=== PATIENT | female | born 1985 | race American Indian/Alaskan Native ===

== ENCOUNTER 2016-03-20 14:54 | Emergency (ER) | payer OTHER ==
[~2016-03-20] VITALS: Ht 162.6 cm; Wt 98.8 kg
[~2016-03-20 14:54] MED LIST: HYDR-5688 PO; LEVO50TA6 PO
[2016-03-20 15:03] VITALS: TEMP 37.1; Ht 162.6 cm; Wt 98.8 kg
--- NOTE | 2016-03-20 15:49 | DIAGNOSTIC IMAGING REPORT ---
CHEST 2 VIEWS ROUTINE CLINICAL HISTORY: cough COMPARISON STUDY: 04/04/2012 FINDINGS: The cardiac and mediastinal contours are normal. There is no evidence of focal pulmonary consolidation. There is no evidence of failure. No pleural effusions are visualized.[ IMPRESSION: No active disease in the chest. Electronically signed by: Rush Berkowitz M.D. 03/20/2016 3:47 PM Dictated Date/Time: 03/20/2016 3:47 PM
[2016-03-20] MEDS ORDERED: HYDR5SYP11 PO (16:47)
[2016-03-20 16:53] VITALS: BP 111/61; PULSE 98; O2SAT 97
--- NOTE | 2016-03-20 17:09 | EMERGENCY ROOM VISIT NOTE ---
History Report prepared by Irma: [place] Br[place]ño Under the Supervision of: Dr. Navarro Cintron D.O. First contact with patient: 15:06 Chief Complaint: COUGH Stated Complaint: CHEST PAIN History of Present Illness The patient is a 30 year old female who presents to the Emergency Room with complaints of persistent cough that started 3 days ago. The patient presented to her PCP 2 days ago who prescribed Tessalon pearls. The patient notes that the medication has not helped relieve her symptoms. She notes that the cough is productive with green phlegm. She complains of subjective fevers over the weekend, runny nose, congestion, and pain with the cough especially in her lower back and chest. The discomfort is worsened with coughing. She notes that the low back discomfort started yesterday. Pt denies headache, ear pain, change in vision, muscle aches, nausea, vomiting, diarrhea, pain with urination, and melena. She also denies recent trips, surgeries, swelling of calves, hemoptysis , history of cancer, history of blood clots, or control. No weakness or numbness in her legs Source of History: patient Onset: 3 days ago Position: other (global) Quality: other (productive) Associated Symptoms: + back pain (low back pain with cough), + chest pain ( with cough), + fevers (subjective), No diarrhea, No headache, No melena, No nausea, No urinary symptoms, No vomiting Note: Other associated symptoms: green phlegm, runny nose, congestion Denies: changes in vision muscles aches, ear pain, swelling of calves Review of Systems See HPI for pertinent positives & negatives. A total of 10 systems reviewed and were otherwise negative. Past Medical & Surgical Medical Problems: (1) Bilateral tubal ligation (2) Gallbladder disease (3) Hypothyroidism (4) Polycystic ovarian syndrome (5) Type 2 Diabetes Mellitus Without Complications Family History FH: diabetes mellitus FH: heart disease FH: hypertension Social History Smoking Status: Never Smoker Alcohol Use: none Marital Status: single Occupation Status: employed Current/Historical Medications Scheduled Cholecalciferol (Vitamin D3), 2,000 INTER.UNIT PO DAILY Levothyroxine Sodium (Levothyroxine Sodium), 50 MCG PO DAILY Lisinopril (Zestril), 10 MG PO DAILY Scheduled PRN Hydrocodone W/ Homatropine (Hycodan 5/1.5MG 5 Ml), 5 ML PO Q6H PRN for Cough Allergies Coded Allergies: Aspirin (Verified Allergy, Unknown, hives, 02/02/16) Codeine (Verified Allergy, Unknown, sob, 02/02/16) Physical Exam Vital Signs Date Time Temp Pulse Resp B/P Pulse Ox O2 Delivery O2 Flow Rate FiO2 03/20/16 16:53 98 16 111/61 97 Room Air 03/20/16 15:28 98 Room Air 03/20/16 15:03 37.1 102 18 126/82 97 Room Air Physical Exam GENERAL: obese, sitting up in bed, no acute distress, non-productive EYE EXAM: normal conjunctiva, OROPHARYNX: no exudate, no erythema, lips, buccal mucosa, and tongue normal and mucous membranes are moist NECK: supple, no nuchal rigidity, no adenopathy, non-tender LUNGS: Clear to auscultation. Normal chest wall mechanics HEART: no murmurs, S1 normal and S2 normal ABDOMEN: abdomen soft, non-tender, normo-active bowel sounds, no masses, no rebound or guarding. BACK: Back is symmetrical on inspection and there is no deformity, no midline tenderness, no CVA tenderness. SKIN: no rashes and no bruising UPPER EXTREMITIES: upper extremities are grossly normal. LOWER EXTREMITIES: No pitting edema. NEURO EXAM: Normal sensorium, cranial nerves II-XII grossly intact, normal speech, no gross weakness of arms, no gross weakness of legs. Gross sensation intact. Medical Decision & Procedures ER Provider Diagnostic Interpretation: Xray results per the radiologist and my interpretation. CHEST 2 VIEWS ROUTINE CLINICAL HISTORY: cough COMPARISON STUDY: 04/04/2012 FINDINGS: The cardiac and mediastinal contours are normal. There is no evidence of focal pulmonary consolidation. There is no evidence of failure. No pleural effusions are visualized.[ IMPRESSION: No active disease in the chest. Electronically signed by: Rush Berkowitz M.D. 03/20/2016 3:47 PM Dictated Date/Time: 03/20/2016 3:47 PM Laboratory Results Test 03/20/16 15:25 Influenza Type A Antigen Neg for Influ A (NEG) Influenza Type B Antigen Neg for Influ B (NEG) Laboratory results per my review. ED Course ED COURSE: Vital signs were reviewed and showed tachycardic The patients medical record was reviewed The above diagnostic studies were performed and reviewed. ED treatments and interventions as stated above. 1508: The patient was evaluated in room C5. A complete history and physical examination was performed. 1642: Upon reevaluation, the patient is resting comfortably.I discussed my findings with the patient and she understands and agrees with the treatment plan. Based on the patients age, coexisting illnesses, exam and lab findings the decision to treat as an outpatient was made. The patient remained stable while under my care. The patient appeared well at the time of discharge. Medical Decision Differential diagnoses includes but is not limited to acute coronary syndrome, myocardial infarction, pericarditis, pulmonary embolus, aortic dissection, pneumonia, pneumothorax, musculoskeletal, shingles, esophageal. Patient is a 30-year-old female who presents the ER with a productive cough and runny nose and subjective chills over this past weekend. She denies any history of asthma or COPD. She denies any PE risk factors as stated above in the history of present illness. Her pain is present with coughing. This does not appear to be cardiac in etiology based on her symptoms and presentation. Chest X ray shows no focal infiltrate. Influenza A and B were negative. Patient was given a prescription for Hycodan as she already has [employer]. She was instructed not to drive, work, operate heavy machinery or drink alcohol within 12 hours of taking this medication. Patient was updated bedside. She is resting comfortably. She was discharged with a bronchitis and a cough. Discussed with Pt concerning signs and symptoms to watch out for. Pt was instructed to follow up with their PCP and discussed with the patient their option to return to the ED at anytime for persistent or worsening symptoms. The appropriate anticipatory guidance and out-patient management, including indications for return to the emergency department, were explained at length to the patient and understood. [place] Drug Monitoring Program Search Results: patient reviewed within database (two prescriptions filled for narcotics recently) Impression Primary Impression: Bronchitis Additional Impression: Cough Scribe Attestation The scribe's documentation has been prepared under my direction and personally reviewed by me in its entirety. I confirm that the note above accurately reflects all work, treatment, procedures, and medical decision making performed by me. Departure Information Dispostion Home / Self-Care Prescriptions Hydrocodone W/ Homatropine (HYCODAN 5/1.5MG 5 ML) 1 Syp Syp 5 ML PO Q6H Y for Cough, #25 ML Prov: Navarro Cintron, 03/20/16 Referrals Kae Lance DO (PCP) Forms HOME CARE DOCUMENTATION FORM, IMPORTANT VISIT INFORMATION Patient Instructions My [facility] Additional Instructions Please follow up with your primary care doctor with in the next 24 hours. Any worsening of your symptoms, please return to the ED immediately. This includes fevers greater than 100.4, shortness of breath, abdominal pain, or any other concerning signs or symptoms from your standpoint. You were also given a prescription for a narcotic/hycodin. While taking this medication you should also not drive, operate machinery and or work within 12 hours of taking this medication. You should only take it at night as needed for coughing. Problem Qualifiers
[2016-05-09] MEDS ORDERED: HYDR25TA4 PO (13:49)
[2016-05-09] MEDS ORDERED: ACET-1256 PO (13:50)
[2016-05-27] MEDS ORDERED: IBUP600T44 PO (11:08)
[2016-05-27] MEDS ORDERED: OXYC-57 PO (11:08)
[2016-11-17] MEDS ORDERED: FLUO0.0566 TOP (13:49)
[2016-11-17] MEDS ORDERED: CHOL2000 PO (17:09)
[2016-11-17] MEDS ORDERED: LISI-461 PO (17:09)
== END 2016-03-20 16:55 | disposition home or self-care (01) ==
LOC: C.EDB 14:55 → C.EDC 16:55
DX: J40 Bronchitis, not specified as acute or chronic (principal); E03.9 Hypothyroidism, unspecified; E11.9 Type 2 diabetes mellitus without complications; Z79.899 Other long term (current) drug therapy; Z83.3 Family history of diabetes mellitus; Z82.49 Family history of ischemic heart disease and other diseases of the circulatory system

== ENCOUNTER 2016-04-20 11:23 | Emergency (ER) | payer OTHER ==
[~2016-04-20] VITALS: Ht 162.6 cm; Wt 98.0 kg
[~2016-04-20 11:23] MED LIST changes: -HYDR-5688 PO
[2016-04-20 11:41] VITALS: TEMP 36.9; Ht 162.6 cm; Wt 98.0 kg
[2016-04-20] MEDS ORDERED: GLC/500 PO (11:53)
--- NOTE | 2016-04-20 12:22 | DIAGNOSTIC IMAGING REPORT ---
CHEST 2 VIEWS ROUTINE CLINICAL HISTORY: positive workplace PPD. No active symptoms. Tuberculosis COMPARISON STUDY: 03/20/2016 FINDINGS: The bones soft tissues and hemidiaphragms are normal. The cardiomediastinal silhouette is normal. The lungs are clear. The pulmonary vasculature is normal. IMPRESSION: Negative chest. Electronically signed by: Mani Ibarra M.D. 04/20/2016 12:21 PM Dictated Date/Time: 04/20/2016 12:20 PM
[2016-04-20 12:36] VITALS: BP 122/77; PULSE 80; O2SAT 97
--- NOTE | 2016-04-21 20:57 | EMERGENCY ROOM VISIT NOTE ---
History First contact with patient: 11:46 Chief Complaint: OTHER COMPLAINT Stated Complaint: RECHECK History of Present Illness The patient is a 31 year old female who presents to the Emergency Room with complaints of a positive workplace PPD. The patient states that she needs a chest x-ray before returning to work. She does not have a primary care physician that can provide this service for her. The patient does not have known exposure to tuberculosis. She does not have any known immunodeficiency disease. The patient considers herself usually healthy and is without further complaints. Review of Systems More than 6 systems were reviewed and otherwise negative with the exception of history of present illness. Past Medical/Surgical History Medical Problems: (1) Bilateral tubal ligation (2) Gallbladder disease (3) Hypothyroidism (4) Polycystic ovarian syndrome (5) Type 2 Diabetes Mellitus Without Complications Family History FH: diabetes mellitus FH: heart disease FH: hypertension Social History Smoking Status: Never Smoker Alcohol Use: none Marital Status: single Occupation Status: employed Current/Historical Medications Scheduled Cholecalciferol (Vitamin D3), 2,000 INTER.UNIT PO DAILY Levothyroxine Sodium (Levothyroxine Sodium), 50 MCG PO DAILY Lisinopril (Zestril), 10 MG PO DAILY Metformin Hcl (Glucophage), 500 MG PO DAILY Allergies Coded Allergies: Aspirin (Verified Allergy, Unknown, hives, 04/20/16) Codeine (Verified Allergy, Unknown, sob, 04/20/16) Physical Exam Vital Signs Date Time Temp Pulse Resp B/P Pulse Ox O2 Delivery O2 Flow Rate FiO2 04/20/16 12:36 80 16 122/77 97 Room Air 04/20/16 11:41 36.9 77 18 138/79 99 Room Air Pain Rating (0-10): 0 Physical Exam VITALS: Vitals are noted on the nurse's note and reviewed by myself. Vital signs stable. GENERAL: Well-developed, well-nourished, female, who is in no acute distress and resting comfortably. Patient is cooperative with the examination. HEAD: Normocephalic atraumatic. HEART: Regular rate and rhythm without murmurs gallops or rubs. LUNGS: Clear to auscultation bilaterally without wheezes, rales or rhonchi. No retractions or accessory muscle use. NEURO: Patient was alert and oriented to person place and time. CN II through XII grossly intact. Medical Decision & Procedures ER Provider Diagnostic Interpretation: CHEST 2 VIEWS ROUTINE CLINICAL HISTORY: positive workplace PPD. No active symptoms. Tuberculosis COMPARISON STUDY: 03/20/2016 FINDINGS: The bones soft tissues and hemidiaphragms are normal. The cardiomediastinal silhouette is normal. The lungs are clear. The pulmonary vasculature is normal. IMPRESSION: Negative chest. ED Course Physical exam and history were performed. Nursing notes and EMR were reviewed. Patient appears to have had a positive workplace PPD. She does not have a primary care physician and needs a chest x-ray before returning to work. Chest x-ray was performed and was without significant acute findings. The patient was given a copy of her radiology report to take with her. She should try to establish with a local PCP. She was otherwise invited back to ER with any new, worsening, or concerning symptoms. The chart was completed utilizing [employer] Speech Voice Recognition Software. Grammatical errors, random word insertions, pronoun errors, and incomplete sentences are an occasional consequence of this system due to software limitations, ambient noise, and hardware issues. Any formal questions or concerns about the content, text, or information contained within the body of this dictation should be directly addressed to the provider for clarification. . Medical Decision Differential diagnosis includes, but is not limited to: Tuberculosis, positive PPD, and others Impression Primary Impression: History of positive PPD Departure Information Dispostion Home / Self-Care Condition GOOD Forms WORK / SCHOOL INSTRUCTIONS, HOME CARE DOCUMENTATION FORM, IMPORTANT VISIT INFORMATION Patient Instructions [facility] Additional Instructions You were seen and evaluated today on an emergency basis only. This is not a substitute for, or an effort to provide, complete comprehensive medical care. It is not possible to recognize and treat all injuries or illnesses in a single emergency department visit. For this reason it is recommended that you followup with your primary care physician with any ongoing or persisting symptoms. Your chest x-ray today was without significant findings. You are welcome to return to the emergency department anytime with new, worsening, or concerning symptoms.
[2016-05-09] MEDS ORDERED: HYDR25TA4 PO (13:49)
[2016-05-09] MEDS ORDERED: ACET-1256 PO (13:50)
[2016-05-27] MEDS ORDERED: OXYC-57 PO (11:08)
[2016-05-27] MEDS ORDERED: IBUP600T44 PO (11:08)
[2016-11-17] MEDS ORDERED: FLUO0.0566 TOP (13:49)
[2016-11-17] MEDS ORDERED: CHOL2000 PO (17:09)
[2016-11-17] MEDS ORDERED: LISI-461 PO (17:09)
== END 2016-04-20 12:37 | disposition home or self-care (01) ==
LOC: C.EDB 11:25 → C.EDD 12:37
DX: R76.11 Nonspecific reaction to tuberculin skin test without active tuberculosis (principal); E03.9 Hypothyroidism, unspecified; E11.9 Type 2 diabetes mellitus without complications; K82.9 Disease of gallbladder, unspecified; E28.2 Polycystic ovarian syndrome; Z79.4 Long term (current) use of insulin; Z79.899 Other long term (current) drug therapy; Z88.5 Allergy status to narcotic agent; Z88.6 Allergy status to analgesic agent; Z88.3 Allergy status to other anti-infective agents; Z82.49 Family history of ischemic heart disease and other diseases of the circulatory system

== ENCOUNTER 2016-04-22 08:54 | Emergency (ER) | payer OTHER ==
[~2016-04-22] VITALS: Ht 162.6 cm; Wt 99.4 kg
[~2016-04-22 08:54] MED LIST changes: +GLC/500 PO
[2016-04-22 08:57] VITALS: TEMP 37; Ht 162.6 cm; Wt 99.4 kg
--- NOTE | 2016-04-22 09:26 | EMERGENCY ROOM VISIT NOTE ---
History Report prepared by Irma: Kirstie Bone Under the Supervision of: Dr. Josesito Gunn M.D. First contact with patient: 09:02 Chief Complaint: ANKLE PAIN Stated Complaint: ANKLE HURTS History of Present Illness The patient is a 31 year old female who presents to the Emergency Room with complaints of persistent right ankle pain that began two days ago. She currently rates her discomfort as a 5/10 in severity. The patient states that two nights ago she was still half asleep and when she walked down the stairs, she rolled her right ankle. She states that she has been walking on the ankle since then, but mainly on her toes. The patient states that she has been taking Tylenol for her discomfort. Source of History: patient Onset: two days ago Position: ankle (right) Symptom Intensity: 5/10 Modifying Factors (Relieving): tylenol Review of Systems See HPI for pertinent positives & negatives. A total of 10 systems reviewed and were otherwise negative. Past Medical & Surgical Medical Problems: (1) Bilateral tubal ligation (2) Gallbladder disease (3) Hypothyroidism (4) Polycystic ovarian syndrome (5) Type 2 Diabetes Mellitus Without Complications Family History FH: diabetes mellitus FH: heart disease FH: hypertension Social History Smoking Status: Former Smoker Alcohol Use: none Marital Status: single Occupation Status: employed Current/Historical Medications Scheduled Cholecalciferol (Vitamin D3), 2,000 INTER.UNIT PO DAILY Levothyroxine Sodium (Levothyroxine Sodium), 50 MCG PO DAILY Lisinopril (Zestril), 10 MG PO DAILY Metformin Hcl (Glucophage), 500 MG PO DAILY Scheduled PRN Oxycodone Immediate Rel Tab (Roxicodone Ir), 1-2 TAB PO Q4H PRN for Severe Pain Allergies Coded Allergies: Aspirin (Verified Allergy, Unknown, hives, 04/22/16) Codeine (Verified Allergy, Unknown, sob, 04/22/16) Physical Exam Vital Signs Date Time Temp Pulse Resp B/P Pulse Ox O2 Delivery O2 Flow Rate FiO2 04/22/16 09:51 76 18 125/73 98 04/22/16 08:57 37.0 78 17 109/71 99 Room Air Physical Exam GENERAL: Patient is a healthy-appearing well-nourished HEAD: Normocephalic atraumatic EYES: Ocular movements intact pupils equal and react to light OROPHARYNX mucous membranes are moist no exudates present no erythema or edema present NECK: Supple no nuchal rigidity CHEST: Good equal expansion LUNGS: Clear and equal to auscultation CARDIAC: Normal S1 and S2 ABDOMEN: Soft nontender no guarding BACK: No CVA tenderness EXTREMITIES: Tender to the right lateral malleolus. No bruising noted, no swelling noted. Neurovascularly intact at the ankle, knee, and hip. NEURO: Patient is following commands is answering questions appropriately. Alert and oriented x3 Cranial Nerves 2-12 grossly intact Medical Decision & Procedures ER Provider Diagnostic Interpretation: X-ray results as stated below per interpretation by me and the radiologist: RIGHT ANKLE MIN 3 VIEWS ROUTINE CLINICAL HISTORY: Pt c/o Rt ankle pain Right pain. Trauma. COMPARISON: None. DISCUSSION: Small heel spur. No evidence for acute bony pathology. Ankle mortise is aligned anatomically. There is no evidence for soft tissue swelling. IMPRESSION: Small heel spur. Otherwise negative study. Electronically signed by: Mani Ibarra M.D. 04/22/2016 9:28 AM Dictated Date/Time: 04/22/2016 9:28 AM Medications Administered Medications (Trade) Dose Ordered Sig/Chidi Route Start Time Stop Time Status Last Admin Dose Admin Oxycodone HCl (Roxicodone Immediate Rel Tab) 10 mg NOW STAT PO 04/22/16 09:27 04/22/16 09:28 DC 04/22/16 09:39 10 MG ED Course 0905: Past medical records reviewed. The patient was evaluated in room B9. A complete history and physical examination was performed. 0927: Ordered Oxycodone HCl 10 mg PO. 0940: I reevaluated the patient and she is doing well. I discussed the exam findings with her and I discussed the treatment plan. She verbalized complete understanding and agreement. She is ready to go home. Medical Decision Differential diagnosis: Etiologies such as fracture, dislocation, neurovascular compromise, compartment syndrome, soft tissue injury, as well as others were entertained. This is a 31-year-old female who presents emergency department complaining of right ankle pain. Patient has no evidence of bruising fracture dislocation on x -rays as above. The patient was given ox E in the emergency department. I recommended that the patient be placed in a splint and on crutches for follow- up with orthopedics. Patient was in agreement with treatment plan. Impression Primary Impression: Right ankle pain Scribe Attestation The scribe's documentation has been prepared under my direction and personally reviewed by me in its entirety. I confirm that the note above accurately reflects all work, treatment, procedures, and medical decision making performed by me. Departure Information Dispostion Home / Self-Care Prescriptions Oxycodone Immediate Rel Tab (ROXICODONE IR) 5 Mg Tab 1-2 TAB PO Q4H Y for Severe Pain, #24 TAB Prov: Josesito Gunn MD 04/22/16 Referrals Kae Lance DO (PCP) Forms HOME CARE DOCUMENTATION FORM, IMPORTANT VISIT INFORMATION, School Instructions, Work Instructions Patient Instructions Crutches Non Weight Bearing, My [facility], Sprain Ankle Tx Additional Instructions Take 1000 mg Tylenol every 6 hours Take oxy ir for breakthrough pain Follow up with DR Abraham's office You received narcotic or benzodiazepene medication while in the emergency room today. Do not drive, operate heavy machinery, or drink alcohol under the influence of this medication. You have been examined and treated today on an emergency basis only. This is not a substitute for, or an effort to provide, complete comprehensive medical care. It is impossible to recognize and treat all injuries or illnesses in a single emergency department visit. It is therefore important that you follow up closely with Dr Lance. Call as soon as possible for an appointment. Thank you for your time and consideration. I look forward to speaking with you again soon. Please don't hesitate to call us if you have any questions. Problem Qualifiers Primary Impression: Right ankle pain Chronicity: acute Qualified Codes: M25.571 - Pain in right ankle and joints of right foot
[2016-04-22] MEDS ORDERED: OXYCODONE HCL IR 5 MG TAB (IMMEDIATE RELEASE) PO STA (09:27)
--- NOTE | 2016-04-22 09:30 | DIAGNOSTIC IMAGING REPORT ---
RIGHT ANKLE MIN 3 VIEWS ROUTINE CLINICAL HISTORY: Pt c/o Rt ankle pain Right pain. Trauma. COMPARISON: None. DISCUSSION: Small heel spur. No evidence for acute bony pathology. Ankle mortise is aligned anatomically. There is no evidence for soft tissue swelling. IMPRESSION: Small heel spur. Otherwise negative study. Electronically signed by: Mani Ibarra M.D. 04/22/2016 9:28 AM Dictated Date/Time: 04/22/2016 9:28 AM
[2016-04-22] MEDS ORDERED: OXYC1TAB3 PO (09:31)
[2016-04-22 09:51] VITALS: BP 125/73; PULSE 76; O2SAT 98
[2016-05-09] MEDS ORDERED: HYDR25TA4 PO (13:49)
[2016-05-09] MEDS ORDERED: ACET-1256 PO (13:50)
[2016-05-27] MEDS ORDERED: IBUP600T44 PO (11:08)
[2016-05-27] MEDS ORDERED: OXYC-57 PO (11:08)
[2016-11-17] MEDS ORDERED: FLUO0.0566 TOP (13:49)
[2016-11-17] MEDS ORDERED: CHOL2000 PO (17:09)
[2016-11-17] MEDS ORDERED: LISI-461 PO (17:09)
== END 2016-04-22 09:52 | disposition home or self-care (01) ==
LOC: C.EDB 08:55
DX: M25.571 Pain in right ankle and joints of right foot (principal); Z98.51 Tubal ligation status; E03.9 Hypothyroidism, unspecified; E11.9 Type 2 diabetes mellitus without complications; Z87.891 Personal history of nicotine dependence; Z88.3 Allergy status to other anti-infective agents; Z88.5 Allergy status to narcotic agent; Z82.49 Family history of ischemic heart disease and other diseases of the circulatory system

== ENCOUNTER 2016-05-27 08:20 | Day surgery (SDC) | payer OTHER ==
[2016-05-09 13:51] VITALS: BMI 37.0
--- NOTE | 2016-05-09 14:29 | PAT Medication Instructions ---
Service Date May 09, 2016. Current Home Medication List Acetaminophen (Tylenol), 1,000 MG PO PRN Cholecalciferol (Vitamin D3), 2,000 INTER.UNIT PO QAM Fluocinonide (Fluocinonide), 1 APPLN TOP PRN Hydrochlorothiazide (Hctz), 25 MG PO QAM Levothyroxine Sodium (Levothyroxine Sodium), 50 MCG PO QAM Lisinopril (Zestril), 10 MG PO QAM Metformin Hcl (Glucophage), 500 MG PO QAM Medication Instructions For Your Scheduled Surgery - Hold the following medications 24 hours prior to surgery: Fluocinonide (Fluocinonide), 1 APPLN TOP PRN - Hold the following medications 48 hours prior to surgery: Metformin Hcl (Glucophage), 500 MG PO QAM - Hold the following medications the morning of surgery: Lisinopril (Zestril), 10 MG PO QAM Hydrochlorothiazide (Hctz), 25 MG PO QAM Cholecalciferol (Vitamin D3), 2,000 INTER.UNIT PO QAM - Take the following medications the morning of surgery with a sip of water: Levothyroxine Sodium (Levothyroxine Sodium), 50 MCG PO QAM Acetaminophen (Tylenol), 1,000 MG PO PRN (if needed) - Take the following medications as scheduled the night before surgery: Acetaminophen (Tylenol), 1,000 MG PO PRN If you have any questions please call us at [phone] or [phone] ( Antonella) or [phone]
[2016-05-09 14:55] LABS: BASO % 0.4 %; BASO ABS # 0.04 K/uL (0-0.2); COMPLETE YES; EOS % 2.2 %; HEMATOCRIT 37.6 % (37-47); IG% 0.2 %; LYMPH % 23.1 %; LYMPH ABS # 2.51 K/uL (1.2-3.4); MEAN CELL VOLUME 85.3 fL (80-100); MEAN CORPUSCULAR HEMOGLOBIN 29.3 pg (25-34); MEAN CORPUSCULAR HGB CONC 34.3 g/dl (32-36); MONO % 4.8 %; NEUT % 69.3 %; PLATELET COUNT 421 K/uL (130-400); RED BLOOD COUNT 4.41 M/uL (4.2-5.4); WHITE BLOOD COUNT 10.85 K/uL (4.8-10.8)
[2016-05-09 15:19] LABS: BUN/CREATININE RATIO 20.2 (10-20); CALCIUM 9.2 mg/dl (8.5-10.1); CREATININE 0.73 mg/dl (0.60-1.20); POTASSIUM 3.4 mmol/L (3.5-5.1)
[~2016-05-27] VITALS: Ht 162.6 cm; Wt 97.9 kg
[~2016-05-27 08:20] MED LIST changes: +ACET-1256 PO; +CEFAZOLIN 3000 MG/65 ML D5W IV SCH; +FENTANYL CITRATE INJ 50 MCG/1 ML 2 ML VIAL ONE; +HYDR25TA4 PO; +LACTATED RINGER'S 1000ML 1,000 ML IV SCH; +MIDAZOLAM HCL 1 MG/ML 2ML VIAL ONE
[2016-05-27] MEDS ORDERED: EpHEDrine SULFATE INJ 50 MG/ML AMP IV PRN (08:30)
[2016-05-27] MEDS ORDERED: ONDANSETRON INJ 2 MG/ML 2 ML VIAL IV PRN ×2 (08:30→11:15)
[2016-05-27] MEDS ORDERED: ATROPINE SULFATE 0.1 MG/ML 5ML SYR IV PRN (08:30)
[2016-05-27 08:41] VITALS: BP 119/71; PULSE 83; TEMP 37.3; O2SAT 98; Ht 162.6 cm; Wt 97.9 kg
--- NOTE | 2016-05-27 08:42 | History & Physical Bridge Note ---
H&P Re-Evaluation Bridge Note: I have examined the patient, reviewed the History & Physical and in the interval since the performance of the History & Physical I have noted the following changes of clinical significance: No changes noted
[2016-05-27] MEDS ORDERED: BUPIVACAINE 0.5 % 5 MG/1 ML MPF 30ML VIAL ONE (09:04)
[2016-05-27] MEDS ORDERED: PROPOFOL IV EMULSION 10 MG/ML 20 ML VIAL IV ONE (09:53)
[2016-05-27] MEDS ORDERED: GLYCOPYRROLATE INJ 0.2 MG/ML VIAL ONE (09:53)
[2016-05-27] MEDS ORDERED: DEXAMETHASONE SOD INJ 4 MG/ML VIAL ONE (09:53)
[2016-05-27] MEDS ORDERED: ROCURONIUM BROMID 50MG/5ML SYR ONE (09:53)
[2016-05-27] MEDS ORDERED: ONDANSETRON INJ 2 MG/ML 2 ML VIAL ONE ×2 (09:53→10:52)
[2016-05-27] MEDS ORDERED: NEOSTIGMINE METHYLSULFATE 5 MG/5 ML SYR ONE (09:53)
[2016-05-27] MEDS ORDERED: LIDOCAINE HCL 2% 2 ML VIAL (20MG/ML) ONE (09:53)
[2016-05-27] MEDS ORDERED: FENTANYL CITRATE INJ 50 MCG/1 ML 2 ML VIAL ONE ×2 (10:42→11:17)
[2016-05-27] MEDS ORDERED: KETOROLAC TROMETHAMINE 30 MG/ML VIAL ONE (10:52)
[2016-05-27] MEDS ORDERED: SODIUM CHLORIDE 0.9% 1000ML 1,000 ML IV SCH (11:06)
[2016-05-27] MEDS ORDERED: IBUP600T44 PO (11:08)
[2016-05-27] MEDS ORDERED: OXYC-57 PO (11:08)
--- NOTE | 2016-05-27 11:11 | Discharge Instructions ---
Discharge Instructions Date of Service May 27, 2016. Visit Reason for Visit: Left Ovarian Cyst Discharge Discharge Diagnosis / Problem: Laparoscopic Left salpingo-oophorectomy Discharge Goals Goal(s): Decrease discomfort Activity Recommendations Activity Limitations: per Instructions/Follow-up section Anesthesia . Post Anesthesia Instructions: If you have had General Anesthesia or IV Sedation: * Do not drive today. * Resume driving when surgeon permits. * Do not make important decisions or sign legal documents today. * Call surgeon for: 1. Temperature elevations greater than 101 degrees F. 2. Uncontrollable pain. 3. Excessive bleeding. 4. Persistent nausea and vomiting. 5. Medication intolerance (nausea, vomiting or rash). * For nausea and vomiting use only clear liquids such as: tea, soda, bouillon until nausea subsides, then gradually increase diet as tolerated. * If you have any concerns or questions, call your surgeon's office. If physician is unavailable and it is an emergency, call 911 or go to the nearest emergency room. . Instructions / Follow-Up Instructions / Follow-Up POST OPERATIVE: BOWEL FUNCTION/MEDICATIONS: 1. Constipation pain and discomfort are the most common complaints 5-7 days after surgery. Points 2-6 address the things that can help. 2. Chewing gum can help stimulate the gut and help improve digestion and motility. 3. Milk of Magnesia 1-2 times per day until return of bowel function. 4. Colace is a stool softener that helps. Taking this 2-3 times per day until bowel function returns to normal is highly recommended. 5. Dulcolax is a laxative that may be used if several days have passed without a bowel movement. Alternatively Miralax may be used daily instead. 6. Drink plenty of fluids as this will also reduce constipation. 7. Narcotic pain medications will be prescribed by your physician. They are safe to use and we encourage you to use them. If you are not allergic, ibuprofen will also be prescribed. Many patients will be able to transition off of the narcotic medications to ibuprofen by postoperative day 3. ACTIVITY RECOMMENDATIONS: 1. Get plenty of rest and listen to your body. If you are tired, take a nap. 2. You may shower, but do not take a tub bath until you see your doctor at the 2 week post operative visit. 3. Absolutely NO intercourse and nothing in the vagina until you are examined by your doctor at your postop visit. At that visit it will be determined when such activities can be resumed. 4. The main physical activity in the first week should be walking. By the second week you can slowly increase activity. There are no limits on walking up and down stairs. 5. Do not lift more than 5-10 lbs for 4 weeks. Remember the "one-handed rule", i.e. if you can lift something with only one hand it's likely okay. 6. Minimize park manager like vacuuming and exercising for 4 weeks. "Overdoing it" can lead to incisions not healing, pain and vaginal bleeding , so again, listen to your body. 7. Driving can be resumed when you feel able. Do not drive within 24 hours of taking a narcotic medication. EXPECTATIONS: 1. Vaginal spotting, bleeding and discharge are common after surgery. If you experience heavy vaginal bleeding, call the office number day or night [phone]. 2. Bladder discomfort is common after surgery from the catheter. This usually resolves in 1-2 weeks. 3. By the end of the 3rd or 4th week you should be feeling much better. It may take up to 6 weeks for your energy levels to return to normal. 4. Narcotic medications have side effects such as: dizziness, headache, nausea and/or vomiting. If you suspect your pain medication is causing problems, call our office and we may be able to prescribe an alternate medication. 5. The skin incisions are often covered with a liquid bandage. This will gradually peel off over time. CALL THE OFFICE IF YOU HAVE ANY OF THE FOLLOWIN. Temperature of 101 degrees or higher. 2. Severe abdominal or pelvic pain not relieved by pain medication. 3. Persistent nausea or vomiting. 4. Increased pain with urination or difficulty urinating. 5. Bright red bleeding that soaks more than 1 pad per hour. CONTACT PHONE NUMBERS: Main Office: [phone] FOLLOW-UP: Post-Operative Appointments: * Individual instructions will have been given about the timing of your first examination, but this is usually at the end of the second week home. * You will need to call the office at soon after discharge to make the appointment for your post-op check-up if it has not already been scheduled. * Additional information regarding activity, sexual intercourse and when to return to work will be given at this appointment. WE WISH YOU A SPEEDY RECOVERY! Diet Recommendations Recommended Home Diet: no limitations, resume previous diet Procedures Procedures Performed: Laparoscopy, Left Salpingo-Oophorectomy Pending Studies Studies pending at discharge: no Medical Emergencies . Who to Call and When: Medical Emergencies: If at any time you feel your situation is an emergency, please call 911 immediately. . Non-Emergent Contact Non-Emergency issues call your: Primary Care Provider, Fraternity Adviser . . "Provider Documentation" section prepared by Sreekanth Mcknight. [place] Drug Monitoring Program Search Results: no issues identified
--- NOTE | 2016-05-27 11:14 | [facility] Post Operative Brief Note ---
Immediate Operative Summary Operative Date May 27, 2016. Pre-Operative Diagnosis Left ovarian cyst Post-Operative Diagnosis same as pre-operative Procedure(s) Performed Laparoscopy, Left Salpingo-Oophorectomy Surgeon Dr. Sreekanth Mcknight Cable Engineer Outside Plant Surgeon(s) Dr. Alvin Iglesias Estimated Blood Loss 25ml Findings Upon laparoscopic exam uterus was at midline and freely mobile. The left ovary was enlarged containing a fluid filled cyst. The cyst was drained laparoscopically decompressing the ovary. The left ovary and tube were successfully removed with the ligasure. The specimen was then placed within and endo catch bag and removed from the abdomen. Inspection of the left adnexa was noted to be hemostatic. The right ovary and tube were normal. No other intraabdominal or pelvic pathology noted. The patient tolerated the procedure well and was sent to recovery with stable vital signs. Fluids (cc crystalloids) 1200 Specimens Permanent Specimen: A: Left ovary and fallopian tube Drains Aleman to gravity Anesthesia General Complication(s) None Disposition Recovery Room / PACU
[2016-05-27] MEDS ORDERED: OXYCODONE/ACETAMINOPHEN 5-325 TAB PO PRN ×2 (11:15)
[2016-05-27] MEDS ORDERED: IBUPROFEN 600 MG TAB PO PRN (11:15)
[2016-05-27] MEDS: FENTANYL CITRATE INJ 50 MCG/1 ML 2 ML VIAL IV PRN ×6 (11:24→11:54)
[2016-05-27] MEDS ORDERED: NURSING VERBAL MED ORDER ONE ×2 (11:39→12:00)
[2016-05-27] MEDS ORDERED: ACETAMINOPHEN 1000 MG/100 ML IV IV ONE (11:50)
[2016-05-27 12:25] VITALS: BP 135/75; PULSE 104; TEMP 36.7; O2SAT 93
--- NOTE | 2016-05-27 12:52 | OPERATIVE REPORT ---
DATE OF OPERATION: 05/27/2016 PREOPERATIVE DIAGNOSES: Left ovarian cyst. POSTOPERATIVE DIAGNOSES: Same. OPERATIVE PROCEDURE: Laparoscopic left salpingo-oophorectomy. SURGEON: Dr. Sreekanth Mcknight. FINISHING AREA SUPERVISOR: Dr. Iglesias. ANESTHESIA: General. ESTIMATED BLOOD LOSS: 25 mL. IV FLUIDS: 1200 mL crystalloids. URINE OUTPUT: 100 mL clear yellow urine. SPECIMENS: Left ovary and fallopian tube to pathology. DRAINS: Aleman to gravity. COMPLICATIONS: None. DISPOSITION: Recovery room. OPERATIVE FINDINGS: Upon laparoscopic exam, the uterus was at midline and freely mobile. The left ovary was enlarged, containing a fluid-filled cyst. The cyst was drained laparoscopically decompressing the ovary. Once the cyst was drained, the left ovary and tube were successfully removed with the LigaSure. The specimen was then placed within an EndoCatch bag and removed from the abdomen through the suprapubic trocar. The incision had to be extended bilaterally in order to accommodate removal of the specimen. Inspection of the left adnexa was noted to be hemostatic. The right ovary and tube were normal. No other intra-abdominal or pelvic pathology noted. The patient tolerated the procedure well and was sent to recovery with stable vital signs. OPERATIVE PROCEDURE IN DETAIL: The patient was taken to the operating room, where general anesthesia was administered. Once anesthesia was found to be adequate, the patient was placed in dorsal lithotomy position and was prepped and draped in a manner appropriate for the procedure. A bimanual examination was then performed. A weighted speculum was then placed into the vagina and the anterior lip of the cervix was grasped with a single-tooth tenaculum. A Hulka uterine manipulator was then placed within the uterus in anteverted fashion. A sterile Aleman catheter was then placed within the bladder and remained indwelling throughout the entire procedure. A weighted speculum was then removed from the vagina and the patient was then readied for the laparoscopic portion of the procedure. Attention was then directed towards the abdomen. 0.5% Marcaine was injected below the umbilicus and an 11-mm skin incision was made horizontally below the umbilicus. The fascia was then grasped with Rodri clamps and a Veress needle was then placed within the abdomen. Normal saline was injected with no fecal content aspirated. Pneumoperitoneum was then created. The Veress needle was then removed and an 11-mm trocar was then placed within the abdomen under direct laparoscopic visualization. A second 11-mm skin incision was made 2 fingerbreadths above the pubic symphysis and a second 11-mm trocar was placed within the abdomen under direct laparoscopic visualization. A third 5-mm skin incision was made on the left side of the abdomen and a 5-mm trocar was placed within the abdomen under direct laparoscopic visualization. A thorough examination of the abdomen and pelvis was then performed. The left ovary was noted to be enlarged. A laparoscopic needle was placed within the cyst and the cyst fluid was aspirated from the ovary. Once the ovary was decompressed, the infundibulopelvic ligament was cauterized and transected with the LigaSure, continued inferiorly through the rest of the attachment points of the ovary and fallopian tube, cauterizing and transecting as we continued. Once the specimen was completely transected, the specimen was then placed within an EndoCatch bag and was removed from the suprapubic incision. The incision had to be extended bilaterally to accommodate the removal of the specimen. Once the specimen was out of the abdomen, the fascia of the suprapubic incision was grasped with Rodri clamps and was closed with 0 Vicryl suture in continuous running fashion. The subcutaneous tissue was reapproximated with 2-0 plain suture in a continuous running fashion. Skin was closed with 4-0 Monocryl in a subcuticular fashion. Inspection of the left adnexa was noted to be hemostatic. No other intra-abdominal or pelvic pathology was noted. The pneumoperitoneum was then released. Once all the CO2 gas was allowed to percolate through the open cannulas, the cannulas were then removed. The fascia of the umbilical incision was grasped with Rodri clamps and reapproximated with 0 Vicryl suture in a [id number] interrupted fashion. Excellent hemostasis was noted. The subcutaneous tissue was reapproximated with 2-0 plain in a continuous running fashion. Skin of all 3 incisions were closed with 4-0 Monocryl in subcuticular fashion. Excellent hemostasis was noted of all 3 incisions. The Aleman catheter was then removed along with the Hulka uterine manipulator. All sponge and instrument counts were found to be correct x2. The patient tolerated the procedure well and was sent to recovery with stable vital signs. I attest to the content of the Intraoperative Record and any orders documented therein. Any exceptio ns are noted below.
[2016-05-27 12:53] VITALS: BP 122/70; PULSE 104; O2SAT 93
[2016-05-27 13:25] VITALS: BP 132/74; PULSE 101; O2SAT 95
--- NOTE | 2016-05-27 13:57 | Anesthesiology Progress Note ---
Anesthesia Post Op Note Date & Time May 27, 2016 at 13:57 Vital Signs Vital Signs Past 12 Hours Date Time Temp Pulse Resp B/P Pulse Ox O2 Delivery O2 Flow Rate FiO2 05/27/16 13:25 101 20 132/74 95 Room Air 05/27/16 12:53 104 20 122/70 93 Room Air 05/27/16 12:25 36.7 104 16 135/75 93 Room Air 05/27/16 12:15 36.5 99 20 122/72 96 Nasal Cannula 2 05/27/16 12:05 99 20 129/73 95 Nasal Cannula 2 05/27/16 11:55 96 15 122/75 96 Nasal Cannula 2 05/27/16 11:45 98 18 152/82 95 Nasal Cannula 2 05/27/16 11:35 94 24 134/94 95 Nasal Cannula 2 05/27/16 11:25 92 21 137/98 96 Nasal Cannula 4 05/27/16 11:18 36.6 95 22 158/100 98 Nasal Cannula 4 05/27/16 08:41 37.3 83 18 119/71 98 Room Air Notes Mental Status: alert / awake / arousable, participated in evaluation Pt Amnestic to Procedure: Yes Nausea / Vomiting: adequately controlled Pain: adequately controlled Airway Patency, RR, SpO2: stable & adequate BP & HR: stable & adequate Hydration State: stable & adequate Anesthetic Complications: no major complications apparent
[2016-05-27 14:23] VITALS: BP 119/73; PULSE 104; TEMP 36.8; O2SAT 98
[2016-11-17] MEDS ORDERED: FLUO0.0566 TOP (13:49)
[2016-11-17] MEDS ORDERED: CHOL2000 PO (17:09)
[2016-11-17] MEDS ORDERED: LISI-461 PO (17:09)
== END 2016-05-27 14:30 | disposition home or self-care (01) ==
LOC: C.ACU 08:20
PROVIDERS: ATTEND Obstetrics & Gynecology
DX: D27.1 Benign neoplasm of left ovary (principal); E11.9 Type 2 diabetes mellitus without complications; M19.90 Unspecified osteoarthritis, unspecified site; E03.9 Hypothyroidism, unspecified; Z88.5 Allergy status to narcotic agent; Z98.51 Tubal ligation status

== ENCOUNTER 2016-05-28 22:08 | Emergency (ER) | payer OTHER ==
[~2016-05-28] VITALS: Ht 162.6 cm; Wt 101.5 kg
[~2016-05-28 22:08] MED LIST changes: -CEFAZOLIN 3000 MG/65 ML D5W IV SCH; -FENTANYL CITRATE INJ 50 MCG/1 ML 2 ML VIAL ONE; +IBUP600T44 PO; -LACTATED RINGER'S 1000ML 1,000 ML IV SCH; -MIDAZOLAM HCL 1 MG/ML 2ML VIAL ONE; +OXYC-57 PO
[2016-05-28 22:10] VITALS: Ht 162.6 cm; Wt 101.5 kg
--- NOTE | 2016-05-28 22:51 | DIAGNOSTIC IMAGING REPORT ---
CHEST ONE VIEW PORTABLE CLINICAL HISTORY: Fever. COMPARISON STUDY: Chest radiograph April 20, 2016. FINDINGS: Lung volumes are at the lower limits of normal. There is no consolidation. Pulmonary vascularity is normal. The cardiomediastinal silhouette is normal. IMPRESSION: No acute cardiopulmonary findings. Electronically signed by: Jamal Roberts M.D. 05/28/2016 10:49 PM Dictated Date/Time: 05/28/2016 10:49 PM
[2016-05-28] MEDS ORDERED: IBUPROFEN 600 MG TAB PO STA (23:02)
[2016-05-28 23:05] LABS: URINE APPEARANCE CLEAR (CLEAR); URINE BILIRUBIN NEG (NEG); URINE COLOR YELLOW; URINE EPITHELIAL CELL AUTO >30 /lpf (0-5); URINE NITRITE NEG (NEG); URINE SPECIFIC GRAVITY 1.013 (1.000-1.030); UROBILINOGEN NEG (NEG); ZZUR CULT IF INDIC CLEAN CATCH NO
[2016-05-28 23:24] LABS: BASO % 0.2 %; BASO ABS # 0.02 K/uL (0-0.2); COMPLETE YES; EOS % 1.4 %; HEMATOCRIT 34.2 % (37-47); IG% 0.4 %; LYMPH % 21.4 %; LYMPH ABS # 2.32 K/uL (1.2-3.4); MEAN CELL VOLUME 87.2 fL (80-100); MEAN CORPUSCULAR HEMOGLOBIN 29.3 pg (25-34); MEAN CORPUSCULAR HGB CONC 33.6 g/dl (32-36); MEAN PLATELET VOLUME 9.2 fL (7.4-10.4); MONO % 7.9 %; NEUT % 68.7 %; PLATELET COUNT 351 K/uL (130-400); RED BLOOD COUNT 3.92 M/uL (4.2-5.4); WHITE BLOOD COUNT 10.85 K/uL (4.8-10.8)
[2016-05-28 23:34] LABS: MANUAL MICROSCOPIC REQUIRED? NO; REVIEW REQ? NO
[2016-05-28 23:45] LABS: BUN/CREATININE RATIO 17.3 (10-20); CALCIUM 8.2 mg/dl (8.5-10.1); CREATININE 0.75 mg/dl (0.60-1.20); POTASSIUM 3.3 mmol/L (3.5-5.1)
[2016-05-29] MEDS ORDERED: AMOX875T PO (00:06)
[2016-05-29] MEDS ORDERED: AMOXICILLIN/CLAVULANATE TAB 875 MG TAB PO ONE ×2 (00:15)
[2016-05-29] MEDS ORDERED: AMOXICIL/CLAVU 875MG HOME PACK PO ONE (00:23)
[2016-05-29 00:27] VITALS: BP 126/86; PULSE 80; TEMP 36.8; O2SAT 99
--- NOTE | 2016-05-29 02:28 | EMERGENCY ROOM VISIT NOTE ---
History Report prepared by Irma: Edi Christie Under the Supervision of: Dr. Nando Benjamin M.D. First contact with patient: 22:27 Chief Complaint: FEVER Stated Complaint: FEVER,POST OP 05-27 History of Present Illness The patient is a 31 year old female who presents to the Emergency Room with complaints of a post operative flu that began today, several hours prior to arrival. The patient had a procedure yesterday to remove the left ovary and left ovarian tube, secondary to an ovarian cyst. She states that she is also experiencing some pain in her lower abdomen from the surgery. The procedure was done at [facility] by Dr. Teran. 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 She has been taking Tylenol and Percocet for her symptoms. The patient notes that she has not had a normal bowel movement in the past 24 hours, which is usual for her, and she had a Aleman catheter placed following the procedure. Since the Aleman has been removed the patient has had some hematuria and burning with urination. The patient denies LOC, headache, diaphoresis, visual changes, neck pain, chest pain, breathing difficulties, nausea, vomiting, back pain, melena, hematochezia, numbness, weakness, lymphadenopathy, rash, or other complaints. 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 A total of ten systems were reviewed and were otherwise negative. Past Medical & Surgical Medical Problems: (1) Bilateral tubal ligation (2) Gallbladder disease (3) Hypothyroidism (4) Polycystic ovarian syndrome (5) Type 2 Diabetes Mellitus Without Complications Family History FH: diabetes mellitus FH: heart disease FH: hypertension Social History Smoking Status: Former Smoker Alcohol Use: none Marital Status: single Occupation Status: employed Current/Historical Medications Scheduled Acetaminophen (Tylenol), 1,000 MG PO PRN Amoxicillin & Pot Clavulanate (Augmentin 875-125 mg), 875 MG PO BID Cholecalciferol (Vitamin D3), 2,000 INTER.UNIT PO QAM Fluocinonide (Fluocinonide), 1 APPLN TOP PRN Hydrochlorothiazide (Hctz), 25 MG PO QAM Levothyroxine Sodium (Levothyroxine Sodium), 50 MCG PO QAM Lisinopril (Zestril), 10 MG PO QAM Metformin Hcl (Glucophage), 500 MG PO QAM Scheduled PRN Ibuprofen (Motrin), 600 MG PO Q6H PRN for Pain Oxycodone/Acetaminophen 5MG/325MG (Percocet 5MG/325MG), 1-2 TABLETS PO Q4H PRN for Pain Allergies Coded Allergies: Aspirin (Verified Allergy, Unknown, hives, 05/28/16) Codeine (Verified Adverse Reaction, Unknown, SOB X 1-SECOND TIME-NO PROBLEMS PER PT, 05/28/16) Nickel (Unverified Adverse Reaction, Unknown, IRRITATION WITH INEXPENSIVE JEWELRY, 05/28/16) Physical Exam Vital Signs Date Time Temp Pulse Resp B/P Pulse Ox O2 Delivery O2 Flow Rate FiO2 05/29/16 00:27 36.8 80 20 126/86 99 05/28/16 23:11 92 16 121/76 96 Room Air 05/28/16 22:48 94 05/28/16 22:10 37.0 104 20 148/87 98 Room Air Physical Exam GENERAL: Awake, alert, mildly ill appearing, no distress HEAD: Normocephalic, atraumatic. No edema. EYES: Normal conjunctiva. Sclera non-icteric. EARS: Right TM normal. Left TM normal. NOSE: Mild congestion. OROPHARYNX: Lips, tongue, and mucosa unremarkable. No erythema or exudate. NECK: Supple. No nuchal rigidity. FROM. No adenopathy. Negative jolt accentuation test. RESPIRATORY: CTA bilaterally. No wheezes rales or rhonchi. CARDIAC: Borderline tachycardic rate, normal rhythm. ABDOMEN: Soft, non distended. No tenderness to palpation. There is an incision in the lower abdomen, with mild tenderness but no erythema or drainage. NEURO: Normal sensorium. SKIN: No rash or jaundice noted Medical Decision & Procedures ER Provider Diagnostic Interpretation: X ray results as stated below per my interpretation and radiologist interpretation. Other radiology results as stated below per my review and radiologist interpretation CHEST ONE VIEW PORTABLE CLINICAL HISTORY: Fever. COMPARISON STUDY: Chest radiograph April 20, 2016. FINDINGS: Lung volumes are at the lower limits of normal. There is no consolidation. Pulmonary vascularity is normal. The cardiomediastinal silhouette is normal. IMPRESSION: No acute cardiopulmonary findings. Electronically signed by: Jamal Roberts M.D. 05/28/2016 10:49 PM Dictated Date/Time: 05/28/2016 10:49 PM Laboratory Results 05/28/16 22:50 Red Blood Count 3.92, Mean Corpuscular Volume 87.2, Mean Corpuscular Hemoglobin 29.3, Mean Corpuscular Hemoglobin Concent 33.6, Mean Platelet Volume 9.2, Neutrophils (%) (Auto) 68.7, Lymphocytes (%) (Auto) 21.4, Monocytes (%) (Auto) 7.9, Eosinophils (%) (Auto) 1.4, Basophils (%) (Auto) 0.2, Neutrophils # (Auto) 7.46, Lymphocytes # (Auto) 2.32, Monocytes # (Auto) 0.86, Eosinophils # (Auto) 0.15, Basophils # (Auto) 0.02 05/28/16 22:50 Test 05/28/16 00:00 05/28/16 22:50 Influenza Type A Antigen Neg for Influ A (NEG) Influenza Type B Antigen Neg for Influ B (NEG) White Blood Count 10.85 K/uL (4.8-10.8) Red Blood Count 3.92 M/uL (4.2-5.4) Hemoglobin 11.5 g/dL (12.0-16.0) Hematocrit 34.2 % (37-47) Mean Corpuscular Volume 87.2 fL (80-100) Mean Corpuscular Hemoglobin 29.3 pg (25-34) Mean Corpuscular Hemoglobin Concent 33.6 g/dl (32-36) Platelet Count 351 K/uL (130-400) Mean Platelet Volume 9.2 fL (7.4-10.4) Neutrophils (%) (Auto) 68.7 % Lymphocytes (%) (Auto) 21.4 % Monocytes (%) (Auto) 7.9 % Eosinophils (%) (Auto) 1.4 % Basophils (%) (Auto) 0.2 % Neutrophils # (Auto) 7.46 K/uL (1.4-6.5) Lymphocytes # (Auto) 2.32 K/uL (1.2-3.4) Monocytes # (Auto) 0.86 K/uL (0.11-0.59) Eosinophils # (Auto) 0.15 K/uL (0-0.5) Basophils # (Auto) 0.02 K/uL (0-0.2) RDW Standard Deviation 44.6 fL (36.4-46.3) RDW Coefficient of Variation 14.0 % (11.5-14.5) Immature Granulocyte % (Auto) 0.4 % Immature Granulocyte # (Auto) 0.04 K/uL (0.00-0.02) Urine Color YELLOW Urine Appearance CLEAR (CLEAR) Urine pH 7.0 (4.5-7.5) Urine Specific [place] 1.013 (1.000-1.030) Urine Protein NEG (NEG) Urine Glucose (UA) NEG (NEG) Urine Ketones NEG (NEG) Urine Occult Blood 3+ (NEG) Urine Nitrite NEG (NEG) Urine Bilirubin NEG (NEG) Urine Urobilinogen NEG (NEG) Urine Leukocyte Esterase TRACE (NEG) Urine WBC (Auto) 1-5 /hpf (0-5) Urine RBC (Auto) 5-10 /hpf (0-4) Urine Hyaline Casts (Auto) 0 /lpf (0-5) Urine Epithelial Cells (Auto) >30 /lpf (0-5) Urine Bacteria (Auto) NEG (NEG) Anion Gap 8.0 mmol/L (3-11) Est Creatinine Clear Calc Drug Dose 123.7 ml/min Estimated GFR () 121.4 Estimated GFR (Non- 104.7 BUN/Creatinine Ratio 17.3 (10-20) Calcium Level 8.2 mg/dl (8.5-10.1) Total Bilirubin 0.5 mg/dl (0.2-1) Direct Bilirubin 0.1 mg/dl (0-0.2) Aspartate Amino Transf (AST/SGOT) 20 U/L (15-37) Alanine Aminotransferase (ALT/SGPT) 36 U/L (12-78) Alkaline Phosphatase 85 U/L (45-117) Total Protein 7.2 gm/dl (6.4-8.2) Albumin 3.3 gm/dl (3.4-5.0) Lipase 639 U/L (73-393) Laboratory results reviewed by me Medications Administered Medications (Trade) Dose Ordered Sig/Chidi Route Start Time Stop Time Status Last Admin Dose Admin Ibuprofen (Motrin Tab) 600 mg NOW STAT PO 05/28/16 23:02 05/28/16 23:04 DC 05/28/16 23:18 600 MG Amoxicillin/ Clavulanate Potassium (Augmentin 875MG Home Pack) 1 homepack STK-MED ONCE PO 05/29/16 00:23 05/29/16 00:24 DC 05/29/16 00:20 1 [facility] ED Course 2254: The patient was evaluated in room B3. A complete history and physical exam was performed. 2302: Ordered Motrin 600 mg PO. 0015: Ordered Augmentin 875 mg PO, Amoxicillin 875 mg PO . 0024: Ordered Amoxicillin 1 homepack PO. 0032: I reevaluated the patient. Discussed results and discharge instructions: She verbalized understanding and agreement. The patient is ready for discharge. Medical Decision Triage Nursing notes reviewed. The patient's presentation and history were concerning for flulike symptoms and recent surgery. Etiologies such as viral syndrome, otitis, pharyngitis, pneumonia, urinary tract infection, sepsis, bacteremia, wound infection, as well as others were entertained. The patient notes having multiple sick contacts with upper respiratory infections. The patient was evaluated. Her surgical incisions looked very good. No signs of infection. She did note having some hematuria and dysuria. Her urinalysis did show some blood. The patient's chest x-ray did not show any obvious signs of pneumonia. Influenza testing was negative. Because of the urinary findings as well as her cough I discussed treatment with Augmentin. The patient was in agreement. She was given the first dose of Augmentin in the emergency department. She was also treated with Motrin for the achiness pain. If she worsens in any way she will come back to the emergency department. She will have close outpatient follow-up. By the evaluation outlined above other emergent etiologies such as those listed in the differential, as well as others, were deemed relatively unlikely. The patient and significant other were informed about the findings as listed above. All questions were answered and they were pleased with the treatment. Return instructions were outlined and the patient was discharged in stable condition. The patient was referred to her PCP for follow-up this week for a recheck of the current condition. The chart was completed utilizing [employer] voice recognition software. Grammatical errors, random word insertions, pronoun errors, and incomplete sentences are an occasional consequence of this system due to software limitations, ambient noise, and hardware issues. Any formal questions or concerns about the content, text, or information contained within the body of this dictation should be directly addressed to the physician for clarification. Impression Primary Impression: Fever Additional Impressions: Cough Hematuria Scribe Attestation The scribe's documentation has been prepared under my direction and personally reviewed by me in its entirety. I confirm that the note above accurately reflects all work, treatment, procedures, and medical decision making performed by me. Departure Information Dispostion Home / Self-Care Prescriptions Amoxicillin & Pot Clavulanate (Augmentin 875-125 mg) 1 Tab Tab 875 MG PO BID for 5 Days, #10 TAB Prov: Keanu Garrido MD 05/29/16 Referrals Kae Lance DO (PCP) Forms HOME CARE DOCUMENTATION FORM, IMPORTANT VISIT INFORMATION Patient Instructions My [facility] Additional Instructions Amoxicillin Clavulanate (Augmentin) 875mg: Take one pill twice daily until the prescription is finished. All antibiotics can cause diarrhea. If this occurs and you feel worse or it does not resolve in 1-2 days follow up with your doctor or return to the Emergency Department as this could be signs of serious underlying problems. Any medication can cause an allergic reaction, stop the pills immediately and return to the ER for rash, hives, breathing difficulties, or swelling. Ibuprofen(Motrin, Advil) may be used for fever or pain. Use 600mg every six hours as needed. Take with food. Avoid using more than 2400mg in a 24 hour period. Do not use 2400mg per day for more than three consecutive days without physician direction. Prolonged inappropriate use can lead to stomach upset or ulcers. Rest and drink plenty of fluids. Continue current medications. Return to the ER immediately for chest pain, difficulty breathing, severe headache, worsening or persistent abdominal pain, vomiting, fevers, back or flank pain, worsening of your condition, or as needed. Follow up with your primary physician this week for a recheck of the current condition. Problem Qualifiers
[2016-11-17] MEDS ORDERED: FLUO0.0566 TOP (13:49)
[2016-11-17] MEDS ORDERED: LISI-461 PO (17:09)
[2016-11-17] MEDS ORDERED: CHOL2000 PO (17:09)
== END 2016-05-29 00:28 | disposition home or self-care (01) ==
LOC: C.EDB 22:09
DX: R50.9 Fever, unspecified (principal); R05 Cough; R31.9 Hematuria, unspecified; E03.9 Hypothyroidism, unspecified; E11.9 Type 2 diabetes mellitus without complications; K82.9 Disease of gallbladder, unspecified; E28.2 Polycystic ovarian syndrome; Z98.51 Tubal ligation status; Z87.891 Personal history of nicotine dependence; Z79.84 Long term (current) use of oral hypoglycemic drugs; Z79.899 Other long term (current) drug therapy; Z88.5 Allergy status to narcotic agent; Z88.6 Allergy status to analgesic agent; Z91.09 Other allergy status, other than to drugs and biological substances; Z83.3 Family history of diabetes mellitus; Z82.49 Family history of ischemic heart disease and other diseases of the circulatory system

== ENCOUNTER 2016-07-22 17:31 | Inpatient (IN) | payer OTHER ==
[~2016-07-22] VITALS: Ht 162.6 cm; Wt 93.8 kg
--- NOTE | 2016-07-22 18:14 | EMERGENCY ROOM VISIT NOTE ---
History Report prepared by Irma: Rosi Abraham Under the Supervision of: Dr. Akash Herrera D.O. First contact with patient: 17:46 Chief Complaint: MENTAL HEALTH EVALUATION Stated Complaint: HEADACHE, BODY ACHES History of Present Illness The patient is a 31 year old female who presents to the Emergency Room with complaints of worsening depressed mood for the past 2 days. She has been working a lot lately and feels stressed. For the past 2 days, she has been feeling very upset and yesterday she felt like she did not want to live. She tried to contact her PCP, but there were no appointments. She was directed to call crisis or go to the ED. She feels similarly every month around her period, but this time she feels worse. She believes that her mood might be related to a hormonal imbalance. She has not been admitted for mental health care before. She is not on any medications for mental health. She denies having a plan to hurt herself or having tried to hurt herself. Last year she had a lot of anxiety which was attributed to a thyroid problem which she is currently being treated for. She has a history of PCOS, hypertension, and type 2 diabetes. She recently had an ovary removed. She denies any tobacco or alcohol use. She is unsure if she would like inpatient care. She does not currently have a counselor or therapist. She feels safe at home. She is not on control. Source of History: patient Onset: 2 days ago Position: other (mental health) Quality: other (depressed mood) Timing: worsening Note: Pt reports SI. Pt denies having a plan to hurt herself. Review of Systems See HPI for pertinent positives & negatives. A total of 10 systems reviewed and were otherwise negative. Past Medical & Surgical Medical Problems: (1) Bilateral tubal ligation (2) Depression (3) Depression (4) Gallbladder disease (5) Hypothyroidism (6) Polycystic ovarian syndrome (7) Type 2 Diabetes Mellitus Without Complications Family History FH: diabetes mellitus FH: heart disease FH: hypertension Social History Smoking Status: Never Smoker Alcohol Use: none Marital Status: single Occupation Status: employed Current/Historical Medications Scheduled Cholecalciferol (Vitamin D3), 2,000 INTER.UNIT PO QAM Fluocinonide (Fluocinonide), 1 APPLN TOP PRN Hydrochlorothiazide (Hctz), 25 MG PO QAM Levothyroxine Sodium (Levothyroxine Sodium), 50 MCG PO QAM Lisinopril (Zestril), 10 MG PO QAM Metformin Hcl (Glucophage), 500 MG PO QAM Scheduled PRN Ibuprofen (Motrin), 600 MG PO Q6H PRN for Pain Allergies Coded Allergies: Aspirin (Verified Allergy, Unknown, hives, 07/22/16) Codeine (Verified Adverse Reaction, Unknown, SOB X 1-SECOND TIME-NO PROBLEMS PER PT, 07/22/16) Nickel (Unverified Adverse Reaction, Unknown, IRRITATION WITH INEXPENSIVE JEWELRY, 07/22/16) Physical Exam Vital Signs Date Time Temp Pulse Resp B/P Pulse Ox O2 Delivery O2 Flow Rate FiO2 07/22/16 19:00 91 20 151/89 95 Room Air 07/22/16 17:38 36.8 96 20 158/92 95 Room Air Physical Exam GENERAL: Patient is awake, alert, and non anxious appearing and comfortable. EYES: The conjunctivae are clear. The pupils are round and reactive. EARS, NOSE, MOUTH AND THROAT: The nose is without any evidence of any deformity. Mucous membranes are moist tongue is midline NECK: The neck is nontender and supple. RESPIRATORY: Normal respiratory effort is noted there is no evidence of wheezing rhonchi or rales CARDIOVASCULAR: Regular rate and rhythm noted there no murmurs rubs or gallops normal S1 normal S2 GASTROINTESTINAL: The abdomen is soft. Bowel sounds are present in all quadrants. Abdomen is nontender MUSCULOSKELETAL/EXTREMITIES: There is no evidence of gross deformity full range of motion is noted in the hips and shoulders SKIN: There is no obvious evidence of any rash. There are no petechiae, pallor or cyanosis noted. NEUROLOGIC: Patient is awake alert and oriented x3 strength is symmetric patellar reflexes are 2+ bilaterally PSYCH: Affect was flat, patient makes poor eye contact, currently admitting to SI which is vague, patient does not have a plan. Medical Decision & Procedures Laboratory Results 07/22/16 18:30 Red Blood Count 4.63, Mean Corpuscular Volume 83.8, Mean Corpuscular Hemoglobin 28.5, Mean Corpuscular Hemoglobin Concent 34.0, Mean Platelet Volume 9.1, Neutrophils (%) (Auto) 74.1, Lymphocytes (%) (Auto) 18.6, Monocytes (%) (Auto) 5.9, Eosinophils (%) (Auto) 1.0, Basophils (%) (Auto) 0.3, Neutrophils # (Auto) 7.71, Lymphocytes # (Auto) 1.93, Monocytes # (Auto) 0.61, Eosinophils # (Auto) 0.10, Basophils # (Auto) 0.03 07/22/16 18:30 Test 07/22/16 17:58 07/22/16 18:30 07/22/16 19:16 Urine Color DK YELLOW Urine Appearance CLOUDY (CLEAR) Urine pH 5.5 (4.5-7.5) Urine Specific [place] 1.029 (1.000-1.030) Urine Protein NEG (NEG) Urine Glucose (UA) NEG (NEG) Urine Ketones NEG (NEG) Urine Occult Blood NEG (NEG) Urine Nitrite NEG (NEG) Urine Bilirubin NEG (NEG) Urine Urobilinogen NEG (NEG) Urine Leukocyte Esterase NEG (NEG) Urine WBC (Auto) 1-5 /hpf (0-5) Urine RBC (Auto) 0-4 /hpf (0-4) Urine Hyaline Casts (Auto) 5-10 /lpf (0-5) Urine Epithelial Cells (Auto) >30 /lpf (0-5) Urine Bacteria (Auto) 1+ (NEG) Urine Pathogenic Casts /lpf (0) Urine Mucus PRESENT (NONE PRSENT) Urine Test NEG (NEG) Urine Opiates Screen NEG (NEG) Urine Methadone, Qualitative NEG (NEG) Urine Barbiturates NEG (NEG) Urine Phencyclidine (PCP) Level NEG (NEG) Ur Amphetamine/Methamphetamine NEG (NEG) MDMA (Ecstasy) Screen NEG (NEG) Urine Benzodiazepines Screen NEG (NEG) Urine Cocaine Metabolite NEG (NEG) Urine Marijuana (THC) NEG (NEG) White Blood Count 10.39 K/uL (4.8-10.8) Red Blood Count 4.63 M/uL (4.2-5.4) Hemoglobin 13.2 g/dL (12.0-16.0) Hematocrit 38.8 % (37-47) Mean Corpuscular Volume 83.8 fL (80-100) Mean Corpuscular Hemoglobin 28.5 pg (25-34) Mean Corpuscular Hemoglobin Concent 34.0 g/dl (32-36) Platelet Count 468 K/uL (130-400) Mean Platelet Volume 9.1 fL (7.4-10.4) Neutrophils (%) (Auto) 74.1 % Lymphocytes (%) (Auto) 18.6 % Monocytes (%) (Auto) 5.9 % Eosinophils (%) (Auto) 1.0 % Basophils (%) (Auto) 0.3 % Neutrophils # (Auto) 7.71 K/uL (1.4-6.5) Lymphocytes # (Auto) 1.93 K/uL (1.2-3.4) Monocytes # (Auto) 0.61 K/uL (0.11-0.59) Eosinophils # (Auto) 0.10 K/uL (0-0.5) Basophils # (Auto) 0.03 K/uL (0-0.2) RDW Standard Deviation 39.6 fL (36.4-46.3) RDW Coefficient of Variation 13.1 % (11.5-14.5) Immature Granulocyte % (Auto) 0.1 % Immature Granulocyte # (Auto) 0.01 K/uL (0.00-0.02) Anion Gap 10.0 mmol/L (3-11) Est Creatinine Clear Calc Drug Dose 121.8 ml/min Estimated GFR () 125.4 Estimated GFR (Non- 108.2 BUN/Creatinine Ratio 12.4 (10-20) Calcium Level 8.9 mg/dl (8.5-10.1) Total Bilirubin 0.9 mg/dl (0.2-1) Direct Bilirubin 0.1 mg/dl (0-0.2) Aspartate Amino Transf (AST/SGOT) 17 U/L (15-37) Alanine Aminotransferase (ALT/SGPT) 31 U/L (12-78) Alkaline Phosphatase 101 U/L (45-117) Total Protein 8.4 gm/dl (6.4-8.2) Albumin 3.9 gm/dl (3.4-5.0) Thyroid Stimulating Hormone (TSH) 0.064 uIu/ml (0.300-4.500) Free Thyroxine 1.15 ng/dl (0.80-1.60) Ethyl Alcohol mg/dL < 3.0 mg/dl (0-3) Bedside Glucose 92 mg/dl (70-90) Laboratory results per my review. Medications Administered Medications (Trade) Dose Ordered Sig/Chidi Route Start Time Stop Time Status Last Admin Dose Admin Acetaminophen (Tylenol Tab) 1,000 mg NOW STAT PO 07/22/16 18:41 07/22/16 18:42 DC 07/22/16 18:47 1,000 MG ED Course 1757: The patient was evaluated in room A5. A complete history and physical examination were performed. 1840: Acetaminophen 1000 mg PO. 2050: I reevaluated the patient. She is resting comfortably. The patient has been accepted to [address] [place] [address]. I discussed results and treatment plan with her. She verbalizes agreement and understanding. The patient will be going to [address] [place] [address]. Medical Decision Prior records/ancillary studies reviewed. Triage Nursing notes reviewed. The patient's history was concerning for possible psychiatric disturbance. Differential diagnosis: Etiologies such as mood disorder, infection, hypoglycemia, electrolyte abnormalities, cardiac sources, intracerebral event, toxicologic, neurologic, as well as others were entertained. The patient is a 31-year-old female who presented to the emergency department for mental health evaluation. The patient has very significant depression as well as suicidal ideation. She does not have any close follow-up arranged. The patient was felt to be in need of inpatient management. The patient was medically cleared in the emergency department and was then evaluated by the delegate from [address] [place] [address]. She was felt to be a good candidate for inpatient management and was admitted to [address] [place] [address]. Impression Primary Impression: Depression Additional Impression: Suicidal ideation Scribe Attestation The scribe's documentation has been prepared under my direction and personally reviewed by me in its entirety. I confirm that the note above accurately reflects all work, treatment, procedures, and medical decision making performed by me. Departure Information Dispostion Mental Health Acute Care Referrals Kae Lance DO (PCP) Patient Instructions My [facility] Problem Qualifiers Primary Impression: Depression Depression Type: unspecified Qualified Codes: F32.9 - Major depressive disorder, single episode, unspecified
[2016-07-22 18:38] LABS: URINE APPEARANCE CLOUDY (CLEAR); URINE BILIRUBIN NEG (NEG); URINE COLOR DK YELLOW; URINE EPITHELIAL CELL AUTO >30 /lpf (0-5); URINE NITRITE NEG (NEG); URINE PH 5.5 (4.5-7.5); URINE SPECIFIC GRAVITY 1.029 (1.000-1.030); UROBILINOGEN NEG (NEG)
[2016-07-22] MEDS ORDERED: ACETAMINOPHEN 500 MG TAB PO STA (18:41)
[2016-07-22 18:42] LABS: MANUAL MICROSCOPIC REQUIRED? NO; REVIEW REQ? YES
[2016-07-22 18:49] LABS: URINE MUCUS PRESENT (NONE PRSENT)
[2016-07-22 18:56] LABS: BASO % 0.3 %; BASO ABS # 0.03 K/uL (0-0.2); COMPLETE YES; HEMATOCRIT 38.8 % (37-47); IG% 0.1 %; LYMPH % 18.6 %; LYMPH ABS # 1.93 K/uL (1.2-3.4); MEAN CELL VOLUME 83.8 fL (80-100); MEAN CORPUSCULAR HEMOGLOBIN 28.5 pg (25-34); MEAN PLATELET VOLUME 9.1 fL (7.4-10.4); MONO % 5.9 %; NEUT % 74.1 %; PLATELET COUNT 468 K/uL (130-400); RED BLOOD COUNT 4.63 M/uL (4.2-5.4); WHITE BLOOD COUNT 10.39 K/uL (4.8-10.8)
[2016-07-22 18:58] LABS: BENZODIAZEPINE, URINE NEG (NEG); COCAINE,URINE NEG (NEG); PHENCYCLIDINE, URINE NEG (NEG)
[2016-07-22 19:15] LABS: BUN/CREATININE RATIO 12.4 (10-20); CALCIUM 8.9 mg/dl (8.5-10.1); CREATININE 0.73 mg/dl (0.60-1.20)
[2016-07-22 19:25] LABS: THYROID STIMULATING HORMONE 0.064 uIu/ml (0.300-4.500)
[2016-07-22] MEDS ORDERED: MAGNESIUM HYDROXIDE SUSP 30 ML UDC PO PRN (19:45)
[2016-07-22] MEDS ORDERED: ALUMINUM/MAGNESIUM SUSP 30 ML UDC PO PRN (19:45)
[2016-07-22] MEDS ORDERED: SODIUM CHLORIDE 0.65% NA SOLN 45 ML (OCEAN) PRN (19:45)
[2016-07-22] MEDS ORDERED: IBUPROFEN 600 MG TAB PO PRN (19:45)
[2016-07-22] MEDS ORDERED: ACETAMINOPHEN 325 MG TAB PO PRN (19:45)
[2016-07-22] MEDS ORDERED: BISMUTH SUBSALICYLATE PER ML OMNICELL CHARGE PO PRN (19:45)
[2016-07-22] MEDS ORDERED: hydrOXYzine HCL 25 MG TAB PO PRN ×2 (19:45)
[2016-07-22 21:18] VITALS: O2SAT 95
[2016-07-22 21:44] VITALS: BP 136/87; PULSE 85; TEMP 36.9; Ht 162.6 cm; Wt 93.8 kg
[2016-07-23 06:51] LABS: BASO % 0.3 %; BASO ABS # 0.03 K/uL (0-0.2); COMPLETE YES; EOS % 2.2 %; HEMATOCRIT 38.3 % (37-47); IG% 0.2 %; LYMPH % 30.3 %; LYMPH ABS # 2.71 K/uL (1.2-3.4); MEAN CELL VOLUME 83.8 fL (80-100); MEAN CORPUSCULAR HEMOGLOBIN 28.2 pg (25-34); MEAN CORPUSCULAR HGB CONC 33.7 g/dl (32-36); MEAN PLATELET VOLUME 8.9 fL (7.4-10.4); MONO % 7.3 %; NEUT % 59.7 %; PLATELET COUNT 475 K/uL (130-400); RED BLOOD COUNT 4.57 M/uL (4.2-5.4); WHITE BLOOD COUNT 8.95 K/uL (4.8-10.8)
[2016-07-23 06:57] VITALS: BP_SYST 120; BP_SYST 127; BP_DIAS 88; BP_DIAS 89; PULSE 74; PULSE 87; TEMP 36.9
[2016-07-23 07:24] LABS: BUN/CREATININE RATIO 10.5 (10-20); CALCIUM 8.8 mg/dl (8.5-10.1); CREATININE 0.71 mg/dl (0.60-1.20); POTASSIUM 3.2 mmol/L (3.5-5.1)
[2016-07-23 07:26] LABS: ALB/GLOB RATIO 0.9 (0.9-2)
[2016-07-23] MEDS: METFORMIN HCL 500 MG TAB PO SCH (08:43)
[2016-07-23] MEDS: LEVOTHYROXINE 50 MCG TAB PO SCH (08:43)
[2016-07-23] MEDS: CHOLECALCIFEROL 1000 INTER.UNIT TAB PO SCH (08:44)
[2016-07-23] MEDS: LISINOPRIL 10 MG TAB PO SCH (08:45)
[2016-07-23] MEDS ORDERED: HYDROCHLOROTHIAZIDE 25 MG TAB PO SCH (09:00)
--- NOTE | 2016-07-23 17:29 | Psychiatric History & Physical ---
History Date of Service July 23, 2016. Identifying Data Yvette Reeves is a 31-year-old female who currently lives with her 4 children and . Yvette Reeves was admitted on a 201 voluntary commitment. Patient is admitted from home. The patient was brought to the ED by self transport. Information provided by the patient is considered to be [reliable] [ unreliable]. Chief Complaint "I was having suicidal thoughts and my PCP encouraged me to go to the ER". History of Present Illness 31 year old female with 4 children, endorsed depressive symptoms most prominent present on days prior to menses. Last had menses Jun 30 2016 per pt. Past 3 days pt quite depressed, low energy, hard to get going, more down on self. occurs monthly for number of days. Having SI past couple days with searching on ways to kill self but did not determine the one method could settle on. ON reached out to PCP's office who encouraged her to go to ER. She went to work and completed shift Monday am and Monday later in day went to ER due to ongoing SI and depressive symptoms. Denied h/o psychiatric treatment besides at age 11 with a walk in clinic visit and placed on a med taken for under 2 weeks due to feeling worse on it (not sure what it was) and around that time had attempt suicide (pt not sure of degree of intent) by cutting and spoke to a school counselor regularly around that time. She denied h/o hypomanic symptoms or psychotic symptoms. She endorsed some occasional anxiety but denied panic attacks. She denied being bothered by mood symptoms other times of the month besides before her menses. She denied other SI concerns in past years. She denied feeling hopeless or worthless. 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 She endorsed drinking a large coffee with 6 "Caffeine shots" added per pt with a separate energy drink on top of that and was having a 2nd one of both in a day lately . Past Psychiatric History Current OP Treatment: no current treatment Prior OP Treatment: no prior treatment (besides a med given to her at age 11 that took for under 2 weeks) Prior Psych Hospitalizations: none Access to a Gun: No Suicide Attempts: Yes (age 11 - cut self ) Past Medication Trials one med trial when age 11 and visited a walk in clinic, took for couple weeks at most and felt worse on it Past Medical/Surgical History History of Concussion/Seizure: No (1) Diabetes (2) Depression (3) Suicidal ideation (4) Polycystic ovarian syndrome (5) Hypothyroidism Removal of Ovary May 27 2016 due to ovarian cyst h/o Gallbladder removal Hypo-potassium with pt having been on HCTZ, stopped by PCP about 2 weeks ago but pt took one pill about 1 day prior to admission. h/o Vit D deficiency on Vit D daily since then Synthroid for her Thyroid condition, TSH low but free T4 normal Allergies Allergies: Coded Allergies: Aspirin (Verified Allergy, Unknown, hives, 07/22/16) Codeine (Verified Adverse Reaction, Unknown, SOB X 1-SECOND TIME-NO PROBLEMS PER PT, 07/22/16) Nickel (Unverified Adverse Reaction, Unknown, IRRITATION WITH INEXPENSIVE JEWELRY, 07/22/16) Home Medications Scheduled Cholecalciferol (Vitamin D3), 2,000 INTER.UNIT PO QAM Fluocinonide (Fluocinonide), 1 APPLN TOP PRN Hydrochlorothiazide (Hctz), 25 MG PO QAM Levothyroxine Sodium (Levothyroxine Sodium), 50 MCG PO QAM Lisinopril (Zestril), 10 MG PO QAM Metformin Hcl (Glucophage), 500 MG PO QAM Scheduled PRN Ibuprofen (Motrin), 600 MG PO Q6H PRN for Pain Family History FH: diabetes mellitus FH: heart disease FH: hypertension History of Suicide: No History of Substance Abuse: No Psychiatric History: No adopted but learning some family history of biological parents Alcohol Use Alcohol Use In Past 12 Months: No (no usage of any alcohol in about 2 years, limited drinking prior to that) AUDIT Total Score: 0 Smoking Use Smoking Status: Former Smoker Substance History denied any h/o substance usage including in past 12 months Personal History Lives in: [place] Childhood: [place] Education: other (gradauted 1 year program for [employer] about 10 years ago, attmepted college couple years but stopped as had issues wihtconcentration and getting dx with thyorid and DM issues ) 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[employer], 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 Relationship History: Children: 4 2 boys ages 11 13 and 2 girls age 9 and 15 Legal History: none Psychological Trauma History: Other (foudn time away form deep while attending [employer] program for a year ( and bibren living 6 hours away) was traumatic for her, 10 years ago, denied other h/o trauma or abuse) Review of Systems Constitutional: denies no symptoms reported, denies see HPI, denies chills, denies diaphoresis, denies fever, denies malaise, denies weakness, denies other ENT: denies: dental pain, ear discharge, ear pain, epistaxis, gum swelling, loss of hearing, mouth pain, mouth swelling, nasal congestion, nasal pain, no symptoms reported, other, rhinorrhea, see HPI, sore throat, stidor, throat swelling, tinnitus Cardiovascular: denies: chest pain, chest pressure, chest tightness, diaphoresis, no symptoms reported, other, palpitations, see HPI, syncope Respiratory: denies: MCMAHON, PND, cough, cyanosis, no symptoms reported, orthopnea , other, see HPI, short of breath, sputum production, stridor, wheezing Gastrointestinal: denies no symptoms reported, denies see HPI, denies abdominal pain, denies constipation, denies diarrhea, denies nausea, denies vomiting, denies other Genitourinary - Female: reports: other (PCOS and recent removal of 1 ovary ( May 27 2016)) Musculoskeletal: back pain (at times during work) Integumentary: other (fungus on foot ) Endocrine: other (shakey feeling that pt wonders if blood sugar gets too low ) Examination Physical Examination reviewed and accept Dr. Herrera's exam from the ER as appropriate and adequate for purpose of this admission Vital Signs Vital Signs Past 12 Hours Date Time Temp Pulse Resp B/P Pulse Ox O2 Delivery O2 Flow Rate FiO2 07/23/16 06:57 36.9 74 18 127/88 87 120/89 Laboratory Results Last 24 Hours Test 07/22/16 17:58 07/22/16 18:30 07/22/16 19:16 07/23/16 06:35 Urine Color DK YELLOW Urine Appearance CLOUDY Urine pH 5.5 Urine Specific [place] 1.029 Urine Protein NEG Urine Glucose (UA) NEG Urine Ketones NEG Urine Occult Blood NEG Urine Nitrite NEG Urine Bilirubin NEG Urine Urobilinogen NEG Urine Leukocyte Esterase NEG Urine WBC (Auto) 1-5 /hpf Urine RBC (Auto) 0-4 /hpf Urine Hyaline Casts (Auto) 5-10 /lpf Urine Epithelial Cells (Auto) >30 /lpf Urine Bacteria (Auto) 1+ Urine Pathogenic Casts /lpf Urine Mucus PRESENT Urine Test NEG Urine Opiates Screen NEG Urine Methadone, Qualitative NEG Urine Barbiturates NEG Urine Phencyclidine (PCP) Level NEG Ur Amphetamine/Methamphetamine NEG MDMA (Ecstasy) Screen NEG Urine Benzodiazepines Screen NEG Urine Cocaine Metabolite NEG Urine Marijuana (THC) NEG White Blood Count 10.39 K/uL 8.95 K/uL Red Blood Count 4.63 M/uL 4.57 M/uL Hemoglobin 13.2 g/dL 12.9 g/dL Hematocrit 38.8 % 38.3 % Mean Corpuscular Volume 83.8 fL 83.8 fL Mean Corpuscular Hemoglobin 28.5 pg 28.2 pg Mean Corpuscular Hemoglobin Concent 34.0 g/dl 33.7 g/dl Platelet Count 468 K/uL 475 K/uL Mean Platelet Volume 9.1 fL 8.9 fL Neutrophils (%) (Auto) 74.1 % 59.7 % Lymphocytes (%) (Auto) 18.6 % 30.3 % Monocytes (%) (Auto) 5.9 % 7.3 % Eosinophils (%) (Auto) 1.0 % 2.2 % Basophils (%) (Auto) 0.3 % 0.3 % Neutrophils # (Auto) 7.71 K/uL 5.34 K/uL Lymphocytes # (Auto) 1.93 K/uL 2.71 K/uL Monocytes # (Auto) 0.61 K/uL 0.65 K/uL Eosinophils # (Auto) 0.10 K/uL 0.20 K/uL Basophils # (Auto) 0.03 K/uL 0.03 K/uL RDW Standard Deviation 39.6 fL 38.9 fL RDW Coefficient of Variation 13.1 % 12.9 % Immature Granulocyte % (Auto) 0.1 % 0.2 % Immature Granulocyte # (Auto) 0.01 K/uL 0.02 K/uL Sodium Level 140 mmol/L 142 mmol/L Potassium Level 3.0 mmol/L 3.2 mmol/L Chloride Level 106 mmol/L 107 mmol/L Carbon Dioxide Level 24 mmol/L 26 mmol/L Anion Gap 10.0 mmol/L 9.0 mmol/L Blood Urea Nitrogen 9 mg/dl 7 mg/dl Creatinine 0.73 mg/dl 0.71 mg/dl Est Creatinine Clear Calc Drug Dose 121.8 ml/min 125.2 ml/min Estimated GFR () 125.4 129.7 Estimated GFR (Non- 108.2 111.9 BUN/Creatinine Ratio 12.4 10.5 Random Glucose 112 mg/dl 92 mg/dl Calcium Level 8.9 mg/dl 8.8 mg/dl Total Bilirubin 0.9 mg/dl 0.8 mg/dl Direct Bilirubin 0.1 mg/dl Aspartate Amino Transf (AST/SGOT) 17 U/L 13 U/L Alanine Aminotransferase (ALT/SGPT) 31 U/L 27 U/L Alkaline Phosphatase 101 U/L 88 U/L Total Protein 8.4 gm/dl 7.4 gm/dl Albumin 3.9 gm/dl 3.6 gm/dl Thyroid Stimulating Hormone (TSH) 0.064 uIu/ml Free Thyroxine 1.15 ng/dl Ethyl Alcohol mg/dL < 3.0 mg/dl Bedside Glucose 92 mg/dl Globulin 3.8 gm/dl Albumin/Globulin Ratio 0.9 Test 07/23/16 08:40 Bedside Glucose 95 mg/dl Mental Examination During interview pt is: alert and oriented, cooperative Appearance: appropriately dressed, appropriately groomed Eye contact is: good Motor behavior is: steady gait & station Speech: normal in rate, rhythm & volume Affect: mood congruent, depressed Mood is: depressed Thought process: goal directed, linear, logical, clear, coherent Suicidal thought are: denied Homicidal thoughts are: denied Hallucinations: denies auditory, denies visual Cognition: attention grossly intact, language grossly intact Intelligence estimated to be: below average Insight: impaired Judgement: impaired Impression / Recommendations Impression 31 yr old women with 4 chidlren, 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 hypokalemia likely due to HCTZ usage. SI with looking up ways to kill self. no prior mental health treatment, symptoms most present on days before her period. Inventory Assets Strengths: seeking treatment, open for outpatient follow up Needs: outpt aftercare to be arranged, assessment and treatment of mental health, safety plan Risk Factors Assessment : No /single/: No Higher / Fall in social status: No Access to guns: No Health problems: Yes Substance use disorders: No Previous attempt: Yes (age 11) Family history of suicide: No Previous psychiatric stay: No Hopelessness: No Smoker: No Protective Factors Assessment : Yes Employed: Yes Recommendations (1) Diuretic-induced hypokalemia pt states PCP stopped HCTZ, with pt off for about 2 weeks but pt took one dose a day prior to admission, stop HCTZ, continue lisinopril recheck K+ 07/24 given 3.0 in ER evening of 07/22 and 3.2 morning of 07/23 and HCTZ stopped (2) Hypothyroidism continue synthroid for now at ucrrent dose, given low TSH might lower dose (3) Suicidal ideation admit 201 vol commitment q15 safety checks, safety plan, family meeting, address underlying depressive symptoms that are most present with PMS exacerbation versus possible PMDD (4) Depression R/O PMDD versus MDD with PMS exacerbation pt open to psychotherapy referral, pt consents to prozac, start at 10mg po qday given pt's concern of possible s/ e as starting a new med aim for family meeting with but pt not yet consenting to this coordinate with PCP, and arrange aftercare CPT Code Initial Hospital Care: [id number]
[2016-07-24 06:33] VITALS: BP_SYST 110; BP_SYST 125; BP_DIAS 72; BP_DIAS 84; PULSE 66; PULSE 77; TEMP 36.6
[2016-07-24] MEDS: LEVOTHYROXINE 50 MCG TAB PO SCH (08:38)
[2016-07-24] MEDS: LISINOPRIL 10 MG TAB PO SCH (08:39)
[2016-07-24] MEDS: CHOLECALCIFEROL 1000 INTER.UNIT TAB PO SCH (08:39)
[2016-07-24] MEDS: METFORMIN HCL 500 MG TAB PO SCH (08:39)
[2016-07-24] MEDS ORDERED: FLUOXETINE HCL 10 MG CAP PO SCH (09:00)
[2016-07-24] MEDS ORDERED: FLUOXETINE HCL 10 MG CAP PO ONE (15:45)
--- NOTE | 2016-07-24 17:12 | Psychiatric Progress Notes ---
Progress Note Date of Service July 24, 2016. Chief Complaint "I am feeling better". Subjective Patient was seen & assessed interval progress reviewed with nurses. Pt shared how she feels out of sync some with having work so many night shifts in a row and attempting to keep to unit schedule. Pt has so far been limited in engaging in groups due to that. She denied SI. She took her prozac 10mg doses and feels ready to increase to 20mg a day. She has her and a child visiting her and the visit is going smooth and feels glad to see them. She is missing them and is hoping to be discharged in the next day or two. She is open to outpt aftercare including psychotherapy. She is denying any s/e to prozac being started. She is feeling better and less depressed and not anxious. She feels that being in the hospital has help settle her down and her sense of hope is increasing. Review of Systems Constitutional: No chills, No fatigue, No fever, No problem reported, No sweats , No weakness, No weight loss Respiratory: No cough, No dyspnea at rest, No dyspnea on exertion, No hemoptysis, No problem reported, No shortness of breath, No sputum, No wheezing Cardiovascular: No PND, No chest pain, No claudication, No edema, No orthopnea , No palpitations, No problem reported Abdomen: No GI bleeding, No constipation, No diarrhea, No nausea, No pain, No problem reported, No vomiting Musculoskeletal: No calf pain, No joint pain, No muscle pain, No problem reported, No swelling Sleep Information Total Hours of Sleep: 7.50 Meal Information Percent of Breakfast Consumed: 100 Percent of Lunch Consumed: 50 Percent of Dinner Consumed: 100 Mental Status Exam During interview pt is: alert and oriented, cooperative Appearance: appropriately dressed, appropriately groomed Eye contact is: good Motor behavior is: steady gait & station Speech: normal in rate, rhythm & volume Affect: mood congruent, other (less depressed, less anxious, brighter) Mood is: other (better, less depressed) Thought process: goal directed, linear, logical, clear, coherent Thought content: reality based without delusions Suicidal thought are: denied Homicidal thoughts are: denied Hallucinations: denies auditory, denies visual Cognition: attention grossly intact, language grossly intact Intelligence estimated to be: below average Insight: impaired Judgement: impaired Impression 31 yr old women with 4 chidlren, 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 hypokalemia likely due to HCTZ usage. SI with looking up ways to kill self. no prior mental health treatment, symptoms most present on days before her period. Plan (1) Diuretic-induced hypokalemia pt states PCP stopped HCTZ, with pt off for about 2 weeks but pt took one dose a day prior to admission, stop HCTZ, continue lisinopril recheck K+ 07/24 given 3.0 in ER evening of 07/22 and 3.2 morning of 07/23 and HCTZ stopped 07/24 K+ trending up webb and 3.3 07/24 am, 3.0 at time of admission 3.1 on (2) Hypothyroidism 07/23 continue synthroid for now at current dose, given low TSH might lower dose 07/24 lower synthroid to 25mcg from 50mg as of 07/25 dosing given low TSH (3) Suicidal ideation admit 201 vol commitment q15 safety checks, safety plan, family meeting, address underlying depressive symptoms that are most present with PMS exacerbation versus possible PMDD (4) Depression R/O PMDD versus MDD with PMS exacerbation pt open to psychotherapy referral, pt consents to prozac, start at 10mg po qday given pt's concern of possible s/ e as starting a new med aim for family meeting with but pt not yet consenting to this coordinate with PCP, and arrange aftercare 07/24 raise prozac to 20mg (addition 10mg dose today to start 200mg full dose as of 07/24) Discharge / Aftercare Planning Primary Care Physician: Name: Dr Sanford Lance Therapist: Name: none Visit Code E&M Code: 54996 Inventory Assets Strengths: seeking treatment, open for outpatient follow up Needs: outpt aftercare to be arranged, assessment and treatment of mental health, safety plan Risk Factors Assessment : No /single/: No Higher / Fall in social status: No Health problems: Yes Substance use disorders: No Previous attempt: Yes (age 11) Family history of suicide: No Previous psychiatric stay: No Hopelessness: No Smoker: No Protective Factors Assessment : Yes Employed: Yes Data Vital Signs Last 24 Hrs: Date Time Temp Pulse Resp B/P Pulse Ox O2 Delivery O2 Flow Rate FiO2 07/24/16 06:33 36.6 66 16 110/72 77 125/84 Meds Administered Last 24 Hrs: Meds Administered (Past 24Hrs) Medications (Trade) Dose Ordered Sig/Chidi Route Start Time Stop Time Status Last Admin Dose Admin Acetaminophen (Tylenol Tab) 1,000 mg NOW STAT PO 07/22/16 18:41 07/22/16 18:42 DC 07/22/16 18:47 1,000 MG Levothyroxine Sodium (Synthroid Tab) 50 mcg DAILYBB PO 07/23/16 08:00 07/24/16 15:27 DC 07/24/16 08:38 50 MCG Lisinopril (Zestril Tab) 10 mg QAM PO 07/23/16 09:00 08/22/16 08:59 07/24/16 08:39 10 MG Metformin HCl (Glucophage Tab) 500 mg QDB PO 07/23/16 09:00 08/22/16 08:59 07/24/16 08:39 500 MG Cholecalciferol (Vitamin D Tab) 2,000 inter.unit QAM PO 07/23/16 09:00 08/22/16 08:59 07/24/16 08:39 2,000 INTER.UNIT Fluoxetine HCl (Prozac Cap) 10 mg DAILY PO 07/24/16 09:00 07/24/16 15:27 DC 07/24/16 08:39 10 MG Fluoxetine HCl (Prozac Cap) 10 mg 1545 ONCE PO 07/24/16 15:45 07/24/16 15:46 DC 07/24/16 15:37 10 MG Lab Results Last 24 Hrs: Last 24 Hours Test 07/24/16 06:20 07/24/16 08:36 Potassium Level 3.3 mmol/L Bedside Glucose 91 mg/dl
[2016-07-25 07:01] VITALS: BP_SYST 108; BP_SYST 111; BP_DIAS 72; BP_DIAS 75; PULSE 67; PULSE 76; TEMP 36.6
[2016-07-25] MEDS ORDERED: LEVOTHYROXINE 25 MCG TAB PO SCH (08:00)
[2016-07-25] MEDS: CHOLECALCIFEROL 1000 INTER.UNIT TAB PO SCH (08:27)
[2016-07-25] MEDS: LISINOPRIL 10 MG TAB PO SCH (08:27)
[2016-07-25] MEDS: METFORMIN HCL 500 MG TAB PO SCH (08:27)
[2016-07-25] MEDS ORDERED: FLUOXETINE HCL 20 MG CAP PO SCH (09:00)
[2016-07-25] MEDS ORDERED: FLUO20CA36 PO (10:09)
[2016-07-25] MEDS ORDERED: LEVO50TA6 PO (10:09)
--- NOTE | 2016-07-25 10:15 | Discharge Instructions ---
Discharge Information Report Includes Report will include the: Discharge Instructions & Summary Admission Admission Date / Time: July 22, 2016 at 19:41 Reason for Admission: Depression Discharge Discharge Diagnosis / Problem: Depression Condition at Discharge: Good Discharge Goals Goal(s): Decrease discomfort, Improve disease control, Prevent Disease Progression Activity Recommendations Activity Limitations: resume your previous activity . Instructions / Follow-Up Instructions / Follow-Up . SPECIAL CARE INSTRUCTIONS: 1. Follow through with your scheduled aftercare appointments. If unable to keep an appointment, please call to reschedule. 2. Take your medication only as prescribed. Medication should not be changed or stopped without the approval of your doctor. In the event of worsening symptoms or concerns about side effects, contact your doctor immediately. 3. Utilize new healthy coping skills, anger management skills, and stress management skills learned during your hospitalization. Journal feelings and process them with a support person. Identify stressors or situations that may result in relapse, deterioration or inappropriate behaviors and develop a plan to deal with those issues. 4. If your coping skills are ineffective and you are in crisis, contact your outpatient providers for direction. If unable to reach your providers, please call the CAN HELP LINE AT or go to the closest Emergency Room. 5. Avoid alcohol and un-prescribed drugs. 6. You have been provided with the Mental Health Advance Directives Pamphlet for your review. AFTERCARE APPOINTMENTS: * Please call your insurance company prior to your scheduled appointment to confirm your aftercare providers are covered. Take your insurance information to your appointments. . Discharge / Aftercare Planning Primary Care Physician: Name: Dr Sanford Lance Therapist: Name Of Therapist: none . Follow-Up Care Plan for Follow-Up Care: The patient will have her meds followed by her PCP, and has been provided contact info for [facility] for counseling Current Hospital Diet Patient's current hospital diet: Diabetes Type 2 Diet Discharge Diet Recommended Diet: Diabetes Type 2 Diet Procedures Procedures Performed: No Pending Studies Pending Studies at Discharge: No Medical Emergencies . Who to Call and When: Medical Emergencies: For questions or emergencies related to your hospital stay, please contact the Inpatient Behavioral Health Unit at [phone]. A winchman/crane operator is on-call 19/09 for the Behavioral Health Unit for emergencies At any time you feel your situation is an emergency, you may also call 911 immediately. . Non-Emergent Contact Non-Emergency issues call your: Primary Care Provider, Therapist Past History Medical & Surgical History: (1) Diabetes Advance Directives Existing Advance Directive: No Do You Have an Existing Mental: No Existing Living Will: No Existing Power of Wearing Apparel Shaker: No The Person Making Decisions: "My boyfriend" Advance Directives Info Given: To Pt/S.O. Advance Directives Reason: Declines as Mental Health Visit. Discharge Summary Admission HPI Per the Admitting provider: 31 year old female with 4 children, endorsed depressive symptoms most prominent present on days prior to menses. Last had menses Jun 30 2016 per pt. Past 3 days pt quite depressed, low energy, hard to get going, more down on self. occurs monthly for number of days. Having SI past couple days with searching on ways to kill self but did not determine the one method could settle on. ON reached out to PCP's office who encouraged her to go to ER. She went to work and completed shift Monday am and Monday later in day went to ER due to ongoing SI and depressive symptoms. Denied h/o psychiatric treatment besides at age 11 with a walk in clinic visit and placed on a med taken for under 2 weeks due to feeling worse on it (not sure what it was) and around that time had attempt suicide (pt not sure of degree of intent) by cutting and spoke to a school counselor regularly around that time. She denied h/o hypomanic symptoms or psychotic symptoms. She endorsed some occasional anxiety but denied panic attacks. She denied being bothered by mood symptoms other times of the month besides before her menses. She denied other SI concerns in past years. She denied feeling hopeless or worthless. 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 She endorsed drinking a large coffee with 6 "Caffeine shots" added per pt with a separate energy drink on top of that and was having a 2nd one of both in a day lately . Hospital Course (1) Diuretic-induced hypokalemia pt states PCP stopped HCTZ, with pt off for about 2 weeks but pt took one dose a day prior to admission, stop HCTZ, continue lisinopril recheck K+ 07/24 given 3.0 in ER evening of 07/22 and 3.2 morning of 07/23 and HCTZ stopped 07/24 K+ trending up webb and 3.3 07/24 am, 3.0 at time of admission 3.1 on (2) Hypothyroidism 07/23 continue synthroid for now at current dose, given low TSH might lower dose 07/24 lower synthroid to 25mcg from 50mg as of 07/25 dosing given low TSH (3) Suicidal ideation admit 201 vol commitment q15 safety checks, safety plan, family meeting, address underlying depressive symptoms that are most present with PMS exacerbation versus possible PMDD (4) Depression R/O PMDD versus MDD with PMS exacerbation pt open to psychotherapy referral, pt consents to prozac, start at 10mg po qday given pt's concern of possible s/ e as starting a new med aim for family meeting with but pt not yet consenting to this coordinate with PCP, and arrange aftercare 07/24 raise prozac to 20mg (addition 10mg dose today to start 200mg full dose as of 07/24) Risk Factors Assessment : No /single/: No Higher / Fall in social status: No Health problems: Yes Substance use disorders: No Previous attempt: Yes (age 11) Family history of suicide: No Previous psychiatric stay: No Hopelessness: No Smoker: No Protective Factors Assessment : Yes Employed: Yes Day of Discharge Assessment COURSE OF HOSPITALIZATION: The patient was admitted to the hospital with depression and suicidal thoughts. 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 This also coincided with her premenstrual week during which she has previously experienced mood disturbance. She was started on Prozac 20 mg daily which she tolerated without side effect. Her symptoms quickly resolved in the inpatient setting, she had no more suicidal ideation. Her was in to visit. She sees Dr. Precious Lance for primary care and would like to have her Prozac followed by her. She is willing for therapy and will be provided the contact information for [facility] for counseling. She had made no act in furtherance and was requesting to go home and deemed safe to do so. She had no anxieties about going home and has good family support. DAY OF DISCHARGE ASSESSMENT: Today the patient is requesting discharge. She denies suicidal thinking, denies anxiety, and feels safe to be discharged. 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 She has made no act in furtherance and so there is no evidence to keep her in the hospital against her will. Today she is casually and appropriately dressed and groomed. Eye contact is good. Gait and station are within normal limits. Speech is of normal rate volume and tone. Thoughts are organized, goal directed, and without evidence of thought disorder. Recent and remote memory are intact per conversation. Intelligence is estimated to be average. Insight and judgment are improved over admission. Laboratory Test 07/22/16 17:58 07/22/16 18:30 07/23/16 06:35 07/23/16 08:40 Urine Color DK YELLOW Urine Appearance CLOUDY Urine pH 5.5 Urine Specific [place] 1.029 Urine Protein NEG Urine Glucose (UA) NEG Urine Ketones NEG Urine Occult Blood NEG Urine Nitrite NEG Urine Bilirubin NEG Urine Urobilinogen NEG Urine Leukocyte Esterase NEG Urine WBC (Auto) 1-5 Urine RBC (Auto) 0-4 Urine Hyaline Casts (Auto) 5-10 Urine Epithelial Cells (Auto) >30 Urine Bacteria (Auto) 1+ Urine Pathogenic Casts Urine Mucus PRESENT Urine Test NEG Urine Opiates Screen NEG Urine Methadone, Qualitative NEG Urine Barbiturates NEG Urine Phencyclidine (PCP) Level NEG Ur Amphetamine/Methamphetamine NEG MDMA (Ecstasy) Screen NEG Urine Benzodiazepines Screen NEG Urine Cocaine Metabolite NEG Urine Marijuana (THC) NEG White Blood Count 10.39 8.95 Red Blood Count 4.63 4.57 Hemoglobin 13.2 12.9 Hematocrit 38.8 38.3 Mean Corpuscular Volume 83.8 83.8 Mean Corpuscular Hemoglobin 28.5 28.2 Mean Corpuscular Hemoglobin Concent 34.0 33.7 Platelet Count 468 475 Mean Platelet Volume 9.1 8.9 Neutrophils (%) (Auto) 74.1 59.7 Lymphocytes (%) (Auto) 18.6 30.3 Monocytes (%) (Auto) 5.9 7.3 Eosinophils (%) (Auto) 1.0 2.2 Basophils (%) (Auto) 0.3 0.3 Neutrophils # (Auto) 7.71 5.34 Lymphocytes # (Auto) 1.93 2.71 Monocytes # (Auto) 0.61 0.65 Eosinophils # (Auto) 0.10 0.20 Basophils # (Auto) 0.03 0.03 RDW Standard Deviation 39.6 38.9 RDW Coefficient of Variation 13.1 12.9 Immature Granulocyte % (Auto) 0.1 0.2 Immature Granulocyte # (Auto) 0.01 0.02 Sodium Level 140 142 Chloride Level 106 107 Carbon Dioxide Level 24 26 Anion Gap 10.0 9.0 Blood Urea Nitrogen 9 7 Creatinine 0.73 0.71 Est Creatinine Clear Calc Drug Dose 121.8 125.2 Estimated GFR () 125.4 129.7 Estimated GFR (Non- 108.2 111.9 BUN/Creatinine Ratio 12.4 10.5 Random Glucose 112 92 Calcium Level 8.9 8.8 Total Bilirubin 0.9 0.8 Direct Bilirubin 0.1 Aspartate Amino Transferase (AST) 17 13 Alanine Aminotransferase (ALT) 31 27 Alkaline Phosphatase 101 88 Total Protein 8.4 7.4 Albumin 3.9 3.6 Thyroid Stimulating Hormone (TSH) 0.064 Free Thyroxine 1.15 Ethyl Alcohol mg/dL < 3.0 Potassium Level 3.2 Globulin 3.8 Albumin/Globulin Ratio 0.9 POC Glucose 95 Test 07/24/16 06:20 07/24/16 08:36 Potassium Level 3.3 POC Glucose 91 Total Time Total Time Spent (min): Greater than 30 minutes Total Time Included: examination of the patient, discharge planning, medication reconciliation, communication with other providers Tobacco Cessation at Discharge Smoking Status: Former Smoker FDA approved Prescription: non-smoker
[2016-11-17] MEDS ORDERED: FLUO0.0566 TOP (13:49)
[2016-11-17] MEDS ORDERED: LISI-461 PO (17:09)
[2016-11-17] MEDS ORDERED: CHOL2000 PO (17:09)
== END 2016-07-25 12:12 | disposition home or self-care (01) | DRG 881 ==
LOC: ENRESERVDT → ENRESERVTM → C.EDB 17:32 → C.MHU 19:41
PROVIDERS: ADMIT Psychiatry & Neurology Psychiatry; ATTEND Psychiatry & Neurology Psychiatry
DX: F32.9 Major depressive disorder, single episode, unspecified (principal); R45.851 Suicidal ideations; E87.6 Hypokalemia; T50.2X5A Adverse effect of carbonic-anhydrase inhibitors, benzothiadiazides and other diuretics, initial encounter; I10 Essential (primary) hypertension; E11.9 Type 2 diabetes mellitus without complications; E03.9 Hypothyroidism, unspecified; E55.9 Vitamin D deficiency, unspecified; Z91.5 Personal history of self-harm; Z90.721 Acquired absence of ovaries, unilateral; Z79.84 Long term (current) use of oral hypoglycemic drugs; Z79.899 Other long term (current) drug therapy

== ENCOUNTER 2016-11-17 18:09 | Emergency (ER) | payer OTHER ==
[~2016-11-17] VITALS: Ht 162.6 cm; Wt 97.1 kg
[~2016-11-17 18:09] MED LIST changes: -ACET-1256 PO; +CHOL2000 PO; +FLUO0.0566 TOP; +FLUO20CA36 PO; -HYDR25TA4 PO; +LISI-461 PO; -OXYC-57 PO
[2016-11-17 18:49] VITALS: TEMP 36.9; Ht 162.6 cm; Wt 97.1 kg
[2016-11-17] MEDS ORDERED: ACET-1256 PO (19:56)
[2016-11-17] MEDS ORDERED: FLUO20CA35 PO (19:56)
[2016-11-17] MEDS ORDERED: ATOR-22 PO (19:56)
[2016-11-17] MEDS ORDERED: LEVO25TA PO (19:56)
[2016-11-17] MEDS ORDERED: METHYLPREDNISOLONE 125 MG VIAL IV STA (20:22)
[2016-11-17] MEDS ORDERED: ALBUT/IPRATROP 3MG/0.5MG NEB 3 ML VIAL INH STA (20:22)
--- NOTE | 2016-11-17 20:27 | EMERGENCY ROOM VISIT NOTE ---
History First contact with patient: 20:05 Chief Complaint: COUGH Stated Complaint: DRY COUGH,SOB,CHEST TIGHTNESS,LOW GRADE FEVER Nursing Triage Summary: Cough for two weeks, feels short of breath when she coughs but no other time. Chest is tight when she coughs. Feels like she has a low grade temperature since this morning. Took one extra strength Tylenol about 1-1/2 hours ago, unsure dose. History of Present Illness The patient is a 31 year old female who presents to the Emergency Room with complaints of complaints of a productive cough that has been going on for over 2 weeks. She also started to feel short of breath this morning. She felt feverish, but did not take her temperature at home. She took Tylenol with minimal relief of her symptoms. She does also complain of a dull, aching in the center of her chest. It is exacerbated with coughing. She denies any heart palpitations or dizziness. No history of heart disease. Review of Systems 10 system review performed and negative unless noted in HPI or below Past Medical/Surgical History Medical Problems: (1) Bilateral tubal ligation (2) Depression (3) Depression (4) Diabetes (5) Diuretic-induced hypokalemia (6) Gallbladder disease (7) Hypothyroidism (8) Polycystic ovarian syndrome (9) Type 2 Diabetes Mellitus Without Complications Family History FH: diabetes mellitus FH: heart disease FH: hypertension Social History Smoking Status: Never Smoker Alcohol Use: none Marital Status: single Occupation Status: employed Current/Historical Medications Scheduled Acetaminophen (Tylenol), 1,000 MG PO prn ud Atorvastatin (Lipitor), 20 MG PO DAILY Cholecalciferol (Vitamin D3), 2,000 INTER.UNIT PO QAM Fluocinonide (Fluocinonide), 1 APPLN TOP PRN Fluoxetine (Prozac), 20 MG PO DAILY Levothyroxine Sodium (Synthroid), 25 MCG PO DAILY Lisinopril (Zestril), 10 MG PO QAM Physical Exam Vital Signs Date Time Temp Pulse Resp B/P (MAP) Pulse Ox O2 Delivery O2 Flow Rate FiO2 11/17/16 22:05 87 20 124/74 99 Room Air 11/17/16 19:39 Room Air 11/17/16 18:49 36.9 88 18 140/89 98 Room Air 11/17/16 18:48 98 Room Air Physical Exam VITALS: Vitals are noted on the nurse's note and reviewed by myself. Vital signs stable. GENERAL: 31-year-old female, in no acute distress, nondiaphoretic, well- developed well-nourished. SKIN: The skin was without rashes, erythema, edema, or bruising. HEAD: Normocephalic atraumatic. MOUTH: Mucous membranes moist. Tonsils are not enlarged. Pharynx without erythema or exudate. Uvula midline. Airway patent. Tongue does not deviate. NECK: Supple without nuchal rigidity. No lymphadenopathy. Cervical spine is nontender. No JVD. HEART: Regular rate and rhythm without murmurs gallops or rubs. LUNGS: Clear to auscultation bilaterally without wheezes, rales or rhonchi. No accessory muscle use. MUSCULOSKELETAL: No muscle atrophy, erythema, or edema noted. Strength 5/5 throughout. NEURO: Patient was alert and oriented to person place and time. Normal sensation to touch. No focal neurological deficits. Medical Decision & Procedures ER Provider Diagnostic Interpretation: CHEST 2 VIEWS ROUTINE CLINICAL HISTORY: 31 years-old Female presenting with cough fever congestion LLL. TECHNIQUE: PA and lateral views of the chest were obtained. COMPARISON: 05/28/2016. FINDINGS: Cardiomediastinal silhouette normal. Lungs and pleural spaces clear. Osseous structures normal. Cholecystectomy clips noted. IMPRESSION: 1. No acute cardiopulmonary disease. Electronically signed by: Bhaskar Walker M.D. 11/17/2016 10:40 PM Dictated Date/Time: 11/17/2016 10:40 PM The status of this report is Signed. Draft = Not yet reviewed or approved by Radiologist. Signed = Reviewed and approved by Radiologist. Laboratory Results 11/17/16 20:50 Red Blood Count 4.50, Mean Corpuscular Volume 84.4, Mean Corpuscular Hemoglobin 28.7, Mean Corpuscular Hemoglobin Concent 33.9, Mean Platelet Volume 8.7, Neutrophils (%) (Auto) 65.4, Lymphocytes (%) (Auto) 23.1, Monocytes (%) (Auto) 6.5, Eosinophils (%) (Auto) 4.3, Basophils (%) (Auto) 0.5, Neutrophils # (Auto) 6.16, Lymphocytes # (Auto) 2.17, Monocytes # (Auto) 0.61, Eosinophils # (Auto) 0.40, Basophils # (Auto) 0.05 11/17/16 20:50 Test 11/17/16 20:22 11/17/16 20:50 White Blood Count 9.41 K/uL (4.8-10.8) Red Blood Count 4.50 M/uL (4.2-5.4) Hemoglobin 12.9 g/dL (12.0-16.0) Hematocrit 38.0 % (37-47) Mean Corpuscular Volume 84.4 fL (80-100) Mean Corpuscular Hemoglobin 28.7 pg (25-34) Mean Corpuscular Hemoglobin Concent 33.9 g/dl (32-36) Platelet Count 389 K/uL (130-400) Mean Platelet Volume 8.7 fL (7.4-10.4) Neutrophils (%) (Auto) 65.4 % Lymphocytes (%) (Auto) 23.1 % Monocytes (%) (Auto) 6.5 % Eosinophils (%) (Auto) 4.3 % Basophils (%) (Auto) 0.5 % Neutrophils # (Auto) 6.16 K/uL (1.4-6.5) Lymphocytes # (Auto) 2.17 K/uL (1.2-3.4) Monocytes # (Auto) 0.61 K/uL (0.11-0.59) Eosinophils # (Auto) 0.40 K/uL (0-0.5) Basophils # (Auto) 0.05 K/uL (0-0.2) RDW Standard Deviation 43.0 fL (36.4-46.3) RDW Coefficient of Variation 14.0 % (11.5-14.5) Immature Granulocyte % (Auto) 0.2 % Immature Granulocyte # (Auto) 0.02 K/uL (0.00-0.02) D-Dimer < 190 ug/L FEU (0-500) Anion Gap 6.0 mmol/L (3-11) Est Creatinine Clear Calc Drug Dose 150.9 ml/min Estimated GFR () 138.8 Estimated GFR (Non- 119.8 BUN/Creatinine Ratio 17.7 (10-20) Calcium Level 9.1 mg/dl (8.5-10.1) Troponin I < 0.015 ng/ml (0-0.045) Medications Administered Medications (Trade) Dose Ordered Sig/Chidi Route Start Time Stop Time Status Last Admin Dose Admin Albuterol/ Ipratropium (Duoneb) 3 ml ONE STAT INH 11/17/16 20:22 11/17/16 20:25 DC 11/17/16 21:11 3 ML Methylprednisolone Sodium Succinate (Solu-Medrol IV) 125 mg NOW STAT IV 11/17/16 20:22 11/17/16 20:25 DC 11/17/16 21:12 125 MG ECG Indication: chest pain Rate (beats per minute): 70 Rhythm: normal sinus ED Course Patient was seen and examined Vital signs including blood pressure were reviewed medications list was verified with patient Labs were obtained, and a saline lock was established An EKG was performed, and the patient was put on the monitor She was given 1 dose of Solu-Medrol 125 mg IV. She was given a DuoNeb Imaging was performed and reviewed The patient was reassessed. She was feeling much better after the DuoNeb. We discussed the results of her workup. She was understanding. I reviewed discharge instructions the patient. They voiced understanding and had no further questions. Medical Decision Differential diagnosis: Bronchitis, pneumonia, strep pharyngitis, viral pharyngitis, influenza , cardiac arrhythmia, coronary artery disease, CO, pulmonary embolus This patient is a 31-year-old female that presents emergency department with complaints of a productive cough and shortness of breath. She also complained of chest pain that seemed pleuritic in nature. Her EKG shows normal sinus rhythm with no sign of ischemia. Her troponin is negative. I do not suspect acute coronary syndrome. Her chest pain is likely musculoskeletal in nature secondary to coughing. She had good symptomatically relief in the emergency department with a DuoNeb. She'll be started on a short course of prednisone. She was given a prescription for an inhaler. As there is no fever or leukocytosis here for pneumonia on the x-ray, this is likely viral. She was not given antibiotics. She was instructed to follow-up with her primary care physician for a recheck and agreed to return here with any new or persistent symptoms. Impression Primary Impression: Acute bronchitis Departure Information Dispostion Home / Self-Care Condition GOOD Prescriptions Guaifenesin (MUCINEX MAXIMUM STRENGTH) 1,200 Mg Tab 1 TAB PO BID for 7 Days, #14 TAB Prov: Jaja Bradshaw PA-C 11/17/16 Albuterol Hfa (VENTOLIN HFA) 200 Puffs/39954 Mcg Aers 2 PUFFS INH QID for Shortness of Breath, #1 INHALER Prov: Jaja Bradshaw PA-C 11/17/16 Prednisone (Prednisone) 50 Mg Tab 50 MG PO DAILY for 4 Days, #4 TAB Prov: Jaja Bradshaw PA-C 11/17/16 Referrals Kae Lance DO (PCP) Patient Instructions My [facility] Additional Instructions You had been evaluated in the emergency department for a cough and difficulty breathing. There were no signs of pneumonia on the chest x-ray. This is likely bronchitis caused by a virus. Antibiotics are not affective against viruses Please take the albuterol inhaler 2 puffs every 6 hours as needed for difficulty breathing Please finish the entire course of steroids. Start your first dose tomorrow. Monitor blood sugar closely while on the steroids Please take the entire course of Mucinex twice daily for 7 days Follow up with your primary care physician within the next 3 days for a recheck Return to the emergency department with any new or worsening symptoms
[2016-11-17 21:02] LABS: BASO % 0.5 %; BASO ABS # 0.05 K/uL (0-0.2); COMPLETE YES; EOS % 4.3 %; IG% 0.2 %; LYMPH % 23.1 %; LYMPH ABS # 2.17 K/uL (1.2-3.4); MEAN CELL VOLUME 84.4 fL (80-100); MEAN CORPUSCULAR HEMOGLOBIN 28.7 pg (25-34); MEAN CORPUSCULAR HGB CONC 33.9 g/dl (32-36); MEAN PLATELET VOLUME 8.7 fL (7.4-10.4); MONO % 6.5 %; NEUT % 65.4 %; PLATELET COUNT 389 K/uL (130-400); WHITE BLOOD COUNT 9.41 K/uL (4.8-10.8)
[2016-11-17 21:30] LABS: BLOOD UREA NITROGEN 11 mg/dl (7-18); BUN/CREATININE RATIO 17.7 (10-20); CALCIUM 9.1 mg/dl (8.5-10.1); CARBON DIOXIDE 24 mmol/L (21-32); CHLORIDE 108 mmol/L (98-107); GLUCOSE 86 mg/dl (70-99); POTASSIUM 3.7 mmol/L (3.5-5.1); SODIUM 138 mmol/L (136-145)
--- NOTE | 2016-11-17 22:42 | DIAGNOSTIC IMAGING REPORT ---
CHEST 2 VIEWS ROUTINE CLINICAL HISTORY: 31 years-old Female presenting with cough fever congestion LLL. TECHNIQUE: PA and lateral views of the chest were obtained. COMPARISON: 05/28/2016. FINDINGS: Cardiomediastinal silhouette normal. Lungs and pleural spaces clear. Osseous structures normal. Cholecystectomy clips noted. IMPRESSION: 1. No acute cardiopulmonary disease. Electronically signed by: Bhaskar Walker M.D. 11/17/2016 10:40 PM Dictated Date/Time: 11/17/2016 10:40 PM
[2016-11-17] MEDS ORDERED: PRED50TA PO (22:57)
[2016-11-17] MEDS ORDERED: GUAI1TAB69 PO (22:57)
[2016-11-17] MEDS ORDERED: VNTHFA/IN INH (22:57)
[2016-11-17 23:17] VITALS: BP 132/70; PULSE 82; O2SAT 98
== END 2016-11-17 23:18 | disposition home or self-care (01) ==
LOC: C.EDB 18:11 → C.EDC 23:18
DX: J20.9 Acute bronchitis, unspecified (principal); F32.9 Major depressive disorder, single episode, unspecified; E11.9 Type 2 diabetes mellitus without complications; E87.6 Hypokalemia; E03.9 Hypothyroidism, unspecified; E28.2 Polycystic ovarian syndrome; Z83.3 Family history of diabetes mellitus; Z82.49 Family history of ischemic heart disease and other diseases of the circulatory system